=== PATIENT | male | born 1960 | race Caucasian/White ===

== ENCOUNTER → 2016-11-19 | Outpatient (CLI) | payer OTHER ==
[~2016-11-19] VITALS: Ht 185.4 cm; Wt 124.1 kg
[~2016-11-19] MED LIST: GLC/500 PO; NAPR220T40 PO; PSEU120T21 PO; VENL150C56 PO
[2016-11-19 15:45] VITALS: BP 116/73; PULSE 105; Ht 185.4 cm; Wt 124.1 kg
== END | disposition home or self-care (01) ==
LOC: C.NEUR 15:29
PROVIDERS: ATTEND Physician Assistant
DX: G47.30 Sleep apnea, unspecified (principal); E11.9 Type 2 diabetes mellitus without complications; F32.9 Major depressive disorder, single episode, unspecified; E78.5 Hyperlipidemia, unspecified; E66.9 Obesity, unspecified

== ENCOUNTER → 2017-10-17 | Outpatient (CLI) | payer OTHER ==
[~2017-10-17] VITALS: Ht 2.5 cm; Wt 121.4 kg
[2017-10-17 14:21] VITALS: BP 108/70; PULSE 114; Ht 2.5 cm; Wt 121.4 kg
== END | disposition home or self-care (01) ==
LOC: C.NEUR 13:40
PROVIDERS: ATTEND Physician Assistant
DX: G47.30 Sleep apnea, unspecified (principal); E66.9 Obesity, unspecified

== ENCOUNTER 2018-05-22 10:06 | Inpatient (IN) ==
[2018-05-22] MEDS ORDERED: SODIUM CHLORIDE 0.9% 1000ML 2,000 ML IV SCH (11:00)
[2018-05-22] MEDS ORDERED: PANTOprazole 40 MG in SYRINGE 0 ML IV ONE (11:02)
--- NOTE | 2018-05-22 11:29 | XRay Report ---
XR chest 1V portable CLINICAL HISTORY: Chest Pain COMPARISON STUDY: Chest radiograph May 17, 2018. PET/CT February 26, 2018. FINDINGS: A right internal jugular [id number]-[id number] is in place. There is no pneumothorax or pleural eff usion. There is no consolidation or evidence for pulmonary edema. Cardiomediastinal silhouette is nor mal. IMPRESSION: No acute cardiopulmonary findings. Electronically signed by: Robert Freeman M.D. 05/22/2018 11:27 AM
[2018-05-22 11:51] LABS: Hematocrit (blood only) 33.3 % (42-52); Hemoglobin 11.5 g/dL (14.0-18.0); Mean Corpuscular Hgb Conc 34.5 g/dL (32-36); Mean Corpuscular Volume 86.9 fL (80-100); RDW Coefficient of Variation 15.9 % (11.5-14.5); RDW Standard Deviation 50.1 fL (36.4-46.3); Red Blood Count 3.83 M/uL (4.7-6.1); White Blood Count 2.03 K/uL (4.8-10.8)
[2018-05-22 11:59] LABS: INR 1.1 (0.9-1.1); Prothrombin Time 11.4 Seconds (9.0-12.0)
[2018-05-22 12:09] LABS: Alanine Aminotransferase 21 U/L (12-78); Albumin Level 2.7 gm/dl (3.4-5.0); Aspartate Aminotransferase 17 U/L (15-37); BUN Creatinine Ratio 10.2 (10-20); Bilirubin Direct 0.1 mg/dl (0-0.2); Blood Urea Nitrogen 10 mg/dl (7-18); Calcium 8.2 mg/dl (8.5-10.1); Carbon Dioxide 24 mmol/L (21-32); Chloride 108 mmol/L (98-107); Creatinine Clr Calc Pharmacy 105.2 ml/min; Est GFR (African American) 98.1; Est GFR (Non-African American) 84.6; Glucose 145 mg/dl (70-99); Magnesium 1.9 mg/dl (1.8-2.4); Potassium 3.2 mmol/L (3.5-5.1); Sodium 138 mmol/L (136-145)
[2018-05-22 12:12] LABS: Albumin Globulin Ratio 0.8 (0.9-2); Alkaline Phosphatase 60 U/L (45-117); Bilirubin,Total 0.4 mg/dl (0.2-1); Globulin 3.6 gm/dl (2.5-4.0); Phosphorus 2.2 mg/dl (2.5-4.9); Total Protein 6.3 gm/dl (6.4-8.2); Troponin I < 0.015 ng/ml (0-0.045)
[2018-05-22 12:19] LABS: iSTAT Creatinine 0.8 mg/dl (0.6-1.3); iSTAT Hemoglobin 10.9 g/dl (14.0-18.0); iSTAT Ionized Calcium 1.12 mmol/l (1.12-1.32); iSTAT Potassium 3.1 mEq/L (3.3-5.0)
[2018-05-22 12:22] LABS: Mean Platelet Volume 10.4 fL (7.4-10.4); Platelet Count 79 K/uL (130-400)
[2018-05-22 12:24] LABS: Eosinophils # (auto) 0.01 K/uL (0-0.5); Eosinophils % (auto) 0.5 %; Immature Granulocytes # (auto) 0.01 K/uL (0.00-0.02); Immature Granulocytes % (auto) 0.5 %; Lymphocytes # (auto) 0.27 K/uL (1.2-3.4); Lymphocytes % (auto) 13.3 %; Monocytes # (auto) 0.29 K/uL (0.11-0.59); Monocytes % (auto) 14.3 %; Neutrophils # (auto) 1.45 K/uL (1.4-6.5); Neutrophils % (auto) 71.4 %
[2018-05-22] MEDS ORDERED: ONDANSETRON INJ 2 MG/ML 2 ML VIAL IV STA (12:45)
--- NOTE | 2018-05-22 13:34 | CT Scan Report ---
ADDENDUM Addendum: The paraesophageal mediastinal infiltration may be related to radiation change and reflect postradiation esophagitis. Mediastinitis cannot be excluded by imaging and clinical correlation is re commended. Electronically signed by: Robert Freeman M.D. 05/22/2018 1:[address] OF THE NECK WITHOUT CONTRAST CLINICAL HISTORY: esophogeal CA - hemoptysis/hematemesis COMPARISON STUDY: PET/CT February 26, 2018. TECHNIQUE: Axial images of the neck were obtained without IV contrast. Automated exposure control was utilized for the study. A dose lowering technique was utilized adhering to the principles of ALARA. FINDINGS: Please note that the chest CT will be reported separately. Postoperative findings within th e sinuses are noted. There is moderate mucosal thickening of the bilateral maxillary sinuses. There i s mild ethmoid sinus mucosal thickening. Visualized portions of the intracranial contents are unremar kable on this unenhanced exam. Evaluation of the neck is suboptimal on this unenhanced exam. The paro tid and submandibular glands are normal. Epiglottis is normal. There is no cervical lymphadenopathy. There is no fluid collection to suggest an abscess. A right internal jugular Mnxhnm-v-Gyuy is in plac e. A heavily calcified right lobe thyroid nodule is incidentally noted. Paraesophageal mediastinal in filtration and esophageal wall thickening is better depicted on the chest CT. There is no soft tissue gas within the neck. IMPRESSION: 1. No acute process within the neck on unenhanced exam. 2. No cervical lymphadenopathy. 3. Paraesophageal mediastinal infiltration and esophageal wall thickening, better depicted on the dilcia st CT. This is nonspecific but may reflect post radiation change/esophagitis. 4. Postoperative findings within the sinuses with moderate mucosal thickening of the bilateral maxill zackary sinuses. Electronically signed by: Robert Freeman M.D. 05/22/2018 1:33 PM
--- NOTE | 2018-05-22 13:42 | CT Scan Report ---
CT chest wo con CLINICAL HISTORY: esphogeal CA - hemoptysis/hematemesis COMPARISON STUDY: April 01, 2018 CT DOSE: TECHNIQUE: CT of the thorax was performed from the thoracic inlet to the lung bases. Images are revi ewed in the axial, sagittal, and coronal planes. IV contrast was not administered for this examinatio n. A dose lowering technique was utilized adhering to the principles of ALARA. FINDINGS: A right-sided A-Port catheter is visualized. Thyroid: There is a 1 cm rim calcified right lobe thyroid nodule. Thoracic aorta: The thoracic aorta is normal in course and caliber, noting standard 3 vessel arch marcos laxmi. Heart: The heart is normal in size. There is no significant pericardial effusion. There are coronary artery calcifications. Lungs and pleural spaces: There are no pleural effusions. There is no focal pulmonary consolidation. Mediastinum: There are paratracheal lymph nodes at the upper limits of normal in size. Roberta: There is no evidence of pathologic hilar adenopathy given the limitations of a noncontrast stud y Axilla: There is no evidence of pathologic axillary lymphadenopathy Upper abdomen: There is soft tissue thickening of the esophagus most pronounced at the level the eso phagogastric junction. There is however diffuse esophageal wall thickening involving the entire thora cic esophagus. There is mild infiltration of the periesophageal fat. Skeletal structures: There are no lytic or blastic osseous lesions. IMPRESSION: 1. No evidence of focal pulmonary consolidation. 2. No pleural effusions. No suspicious pulmonary masses. 3. Diffuse esophageal wall thickening with infiltration of the periesophageal fat. While likely relat ed to interval radiation therapy, a mediastinitis cannot be excluded. No pneumomediastinum is visuali zed. Electronically signed by: Donald Umanzor M.D. 05/22/2018 1:41 PM
--- NOTE | 2018-05-22 14:27 | History & Physical Report ---
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 Churchill -also have been on cycle 9 of 12 FOLFOX chemotherapy -history of -as per outpatient oncology notes patient was suppose due to complete radiation therapy on 05/22/18 but patient presents to hospital on 05/22/18 (had recent ER visit for nausea and vomiting) -patient reports vomiting a clot of of blood yesterday prior to this ED presentation and subsequent smaller episodes of vomiting with blood -CT in ED on 05/22/18 with "Diffuse esophageal wall thickening with infiltration of the periesophageal fat. While likely related to interval radiation therapy, a mediastinitis cannot be excluded" -likely the hematemesis is due to radiation esophagitis -review of outpatient notes that Hgb has been 12.9 in beginning to mid April with downtrending platelets and recent outpatient lab of Hgb 12 with platelets of 87 K. Admission labs of Hegb 11.5 to 10.9 and platelets of 79K -patient last taken the Lovenox on night of 05/22/18 -discussed benefits of risk of anticoagulation versus GI bleed, and plans to continue anticoagulation with IV heparin and trending the blood clots, give IV pantoprazole and IV fluids -will consult hematology/oncology on duration of bed bug exterminator duration and use of anticoagulation for the Cerebral venous sagittal sinus thrombosis -if patient has active bleeding still, and if Hgb or platelets drop signifi cantly then will stop IV heparin and consult gastroenterology -patient signed consent form for blood transfusion if needed and 2 units are to be ordered on hold -will keep NPO except meds and ice chips but generally will avoid oral medications at this time that are not essential until further stability of vomiting -IV antiemetics as need -hold blood pressure medication at this time Radiation induced esophagitis versus upper GI bleed -management as above Anemia and Thrombocytopenia -management as above 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 Holden has admitted the patient on 05/22/18 and patient will be followed by Dr. 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 Churchill; also have been on cycle 9 of 12 FOLFOX chemotherapy; history of as per outpatient oncology notes patient was suppose due to complete radiation therapy on 05/22/18 but patient presents to hospital on 05/22/18 (had recent ER visit for nausea and vomiting) who presents to the ED on 05/22/18 vomiting a clot of of blood yesterday prior to this ED presentation and subsequent smaller episodes of vomiting with blood Patient denies lightheadedness or shortness of breath. Reports only chest discomfort when vomiting. denies abdominal pain. When seen by hospitalist after ED provider completed CT neck and patient generally comfortable and asymptomatic. able to speak in full sentences while breathing on room air and answering questions appropriately. denies changes in urination or with bowel movements. Denies blood in urine of in stool Allergies Allergy/AdvReac Type Severity Reaction Status Date / Time Iodinated Contrast- Oral and AdvReac Sneezing, Verified 05/22/18 12:39 IV Dye watery eyes, and tight feeling throat Home Medications Home Medications Medication Instructions Recorded Confirmed Type fenofibrate nanocrystallized 145 145 mg PO QAM 12/24/17 05/22/18 History mg tablet metformin [Glucophage] 1,000 mg PO BID 01/19/18 05/22/18 History ondansetron HCl [Zofran] 8 mg PO Q8 PRN 01/19/18 05/22/18 History prochlorperazine maleate 10 mg PO Q6 PRN 01/19/18 05/22/18 History lisinopril 5 mg PO QAM 03/22/18 05/22/18 History sucralfate 100 mg/mL oral 10 ml PO QID #420 ml 05/06/18 05/22/18 Rx suspension omeprazole 20 mg PO DAILY PRN 05/17/18 05/22/18 History promethazine [Phenergan] 25 mg VT Q6H PRN #12 ea 05/17/18 05/22/18 Rx Magic Swizzle 10 ml PO UD 05/22/18 05/22/18 History cyanocobalamin (vitamin B-12) 5,000 mcg SUBLINGUAL DAILY 05/22/18 05/22/18 History enoxaparin 100 mg SUBCUT Q12 05/22/18 05/22/18 History venlafaxine 1.5 tabs PO DAILY 05/22/18 05/22/18 History Past Med/Surg History Medical History Cancer of lower third of esophagus (Acute) Dysphasia Status post upper GI endoscopy and biopsy November 26, 2017 Adenocarcinoma of the esophagus, poorly differentiated Status post upper EUS December 09, 2017 Lesion 10 cm Status post PET/CT December 05, 2017 Stage uT3 uN3 cM0 Diabetes (Chronic) Appendicitis with perforation (Acute 07/08/13) Perforated appendicitis (Acute 08/10/13) RLQ abdominal pain (Acute) Sleep apnea (Acute 08/10/13) Depression (Acute) Hyperlipidemia (Acute) Diabetes (Chronic) Esophageal cancer (Chronic) Hypertension (Chronic) Sleep apnea (Chronic) C. difficile colitis (Resolved) Surgical History History of appendectomy History of umbilical hernia repair (Resolved) History of colonoscopy (Resolved) H/O colonoscopy (Resolved) H/O sinus surgery (Resolved) H/O umbilical hernia repair (Resolved) History of appendectomy (Resolved) Family History Mother Cardiac disease Diabetes Father , 70yo;Cancerous brain tumor;bladder cancer; No problems noted. Brother No problems noted. Brother No problems noted. Social History Preferred Language: Serbian Beliefs That Will Affect Care: None marital status: Current Living Situation: Spouse current occupational status: employed current occupation: Works at [employer]; Feels Safe at Home: Yes Smoking Status: Former smoker Hx Alcohol Use: No Hx Substance Use: No during the past year weight has: remained stable Review of Systems All systems reviewed & are unremarkable except as noted in HPI & below Physical Exam Vital Signs (Past 24 Hours): Last Vital Signs Temp 37.0 C 05/22/18 10:23 Pulse 100 H 05/22/18 12:33 Resp 20 05/22/18 12:33 BP 119/70 05/22/18 12:33 Pulse Ox 99 05/22/18 12:33 Constitutional: WD/WN, vitals as above Eyes: PERRL, conjunctivae normal, anicteric sclerae EOM intact bilaterally ENMT: external ear and nose normal, oropharynx normal Neck: trachea midline, no thyromegaly normal visual inspection Respiratory: normal respiratory effort, lungs clear to auscultation Cardiovascular: RRR, no murmur, no edema Chest (Breasts): Chest: + vascular access device or port Gastrointestinal (Abdomen): normal bowel sounds, soft, nontender, no hepatosplenomegaly Musculoskeletal: no cyanosis or clubbing, extremities motor strength 5/5 Head/Neck/Chest: normocephalic and head atraumatic Neurologic: PERRL, EOMI, accommodation nl, no face palsy, no dysarthria CN's II-XI intact bilaterally Psychiatric: A+Ox3, euthymic affect (1) Hematemesis Nausea presence: with nausea Qualified Code(s): K92.0 - Hematemesis
[2018-05-22] MEDS ORDERED: HEPARIN SOD (PORCINE) 1000 UNIT/ML 10 ML VIAL ONE (14:52)
--- NOTE | 2018-05-22 15:02 | Emergency Department Note ---
Entered by Kim Bajwa acting as a scribe for Sea Fallon MD History of Present Illness General Chief complaint: Dehydration Stated complaint: DEHYDRATION,VOMITING BLOOD Time Seen by Provider: 05/22/18 10:53 Source: patient History of Present Illness Provider complaint: vomiting blood Onset (ago): day(s) (since last night) Location: abdomen Pain Consistency: + intermittent Quality: + other (vomiting blood) Associated symptoms: + chest pain and + nausea/vomiting (nausea); no shortness of breath The patient is a 58 year old male who presents to the Emergency Room with complaints of intermittently vomiting blood since last night. He reports that he also coughed up some blood. The patient states that he has a history of esophageal cancer. He states that he was supposed to go to radiology today for a radiation treatment but states that he was referred here. The patient states that he is also getting chemotherapy. He states that he has had blood come up before but states that it has never lasted this long. The patient states that he was told that this happens with treatment. He denies having blood transfusions lately. He reports having chest pain and nausea but denies having shortness of breath. The patient states that he is on Lovenox for a history of blood clots in his brain and states that he did not take it this morning. The patient reports a history of drinking and smoking a long time ago. Home Medications Home Medications Medication Instructions Recorded Confirmed Type fenofibrate nanocrystallized 145 145 mg PO QAM 12/24/17 05/22/18 History mg tablet metformin [Glucophage] 1,000 mg PO BID 01/19/18 05/22/18 History ondansetron HCl [Zofran] 8 mg PO Q8 PRN 01/19/18 05/22/18 History prochlorperazine maleate 10 mg PO Q6 PRN 01/19/18 05/22/18 History lisinopril 5 mg PO QAM 03/22/18 05/22/18 History sucralfate 100 mg/mL oral 10 ml PO QID #420 ml 05/06/18 05/22/18 Rx suspension omeprazole 20 mg PO DAILY PRN 05/17/18 05/22/18 History promethazine [Phenergan] 25 mg UT Q6H PRN #12 ea 05/17/18 05/22/18 Rx Magic Swizzle 10 ml PO UD 05/22/18 05/22/18 History cyanocobalamin (vitamin B-12) 5,000 mcg SUBLINGUAL DAILY 05/22/18 05/22/18 History enoxaparin 100 mg SUBCUT Q12 05/22/18 05/22/18 History venlafaxine 1.5 tabs PO DAILY 05/22/18 05/22/18 History Allergies Allergy/AdvReac Type Severity Reaction Status Date / Time Iodinated Contrast- Oral and AdvReac Sneezing, Verified 05/22/18 12:39 IV Dye watery eyes, and tight feeling throat Past Med/Surg History Medical History Cancer of lower third of esophagus (Acute) Dysphasia Status post upper GI endoscopy and biopsy November 26, 2017 Adenocarcinoma of the esophagus, poorly differentiated Status post upper EUS December 09, 2017 Lesion 10 cm Status post PET/CT December 05, 2017 Stage uT3 uN3 cM0 Diabetes (Chronic) Appendicitis with perforation (Acute 07/08/13) Perforated appendicitis (Acute 08/10/13) RLQ abdominal pain (Acute) Sleep apnea (Acute 08/10/13) Depression (Acute) Hyperlipidemia (Acute) Diabetes (Chronic) Esophageal cancer (Chronic) Hypertension (Chronic) Sleep apnea (Chronic) C. difficile colitis (Resolved) Surgical History History of appendectomy History of umbilical hernia repair (Resolved) History of colonoscopy (Resolved) H/O colonoscopy (Resolved) H/O sinus surgery (Resolved) H/O umbilical hernia repair (Resolved) History of appendectomy (Resolved) Family History Mother Cardiac disease Diabetes Father , 70yo;Cancerous brain tumor;bladder cancer; No problems noted. Brother No problems noted. Brother No problems noted. Social History Preferred Language: Pashto Communication Ability: Effective Sifter And Miller Required: No Beliefs That Will Affect Care: None marital status: Current Living Situation: Spouse current occupational status: employed current occupation: Works at [employer]; Other Information That Helps Us Care for You: No Feels Safe at Home: Yes Safety Concerns: Feels Safe At This Time Smoking Status: Former smoker Hx Alcohol Use: No Hx Substance Use: No during the past year weight has: remained stable Review of Systems See HPI for pertinent positives & negatives. and A total of 10 systems reviewed and were otherwise negative Physical Exam Vital Signs Vital Signs - 24 hr 05/22/18 10:23 05/22/18 10:53 05/22/18 11:54 Temperature 37.0 C Temperature Source Oral Sepsis Recent Fever Within 48 Hours No Sepsis New/Unexplained Change in Mental Status No Sepsis Action Taken by Nursing No Action Required Pulse Rate 121 H 107 H 98 H Pulse Rate [Left] Pulse Rate from SpO2 Sensor 106 H Pulse Rhythm Regular Pulse Strength Normal Respiratory Rate 18 19 18 Respiratory Effort / Characteristics Non-Labored Respiratory Depth Normal Respiratory Pattern Regular Blood Pressure 107/69 97/52 L Blood Pressure [Left Arm] Blood Pressure [Right Arm] Blood Pressure Mean 81 67 Blood Pressure Mean [Left Arm] Blood Pressure Mean [Right Arm] Blood Pressure Position Sitting Blood Pressure Position [Right Arm] Pulse Oximetry 99 97 98 Oxygen Delivery Method Room Air Nasal Cannula 05/22/18 12:19 05/22/18 12:33 05/22/18 12:35 Temperature Temperature Source Sepsis Recent Fever Within 48 Hours Sepsis New/Unexplained Change in Mental Status Sepsis Action Taken by Nursing Pulse Rate 93 H 99 H Pulse Rate [Left] 100 H Pulse Rate from SpO2 Sensor 93 H 100 H Pulse Rhythm Pulse Strength Respiratory Rate 19 20 19 Respiratory Effort / Characteristics Non-Labored Spontaneous Respiratory Depth Respiratory Pattern Blood Pressure 119/70 Blood Pressure [Left Arm] Blood Pressure [Right Arm] 119/70 Blood Pressure Mean 86 Blood Pressure Mean [Left Arm] Blood Pressure Mean [Right Arm] 86 Blood Pressure Position Blood Pressure Position [Right Arm] Lying Pulse Oximetry 98 99 99 Oxygen Delivery Method Room Air 05/22/18 14:09 05/22/18 14:10 05/22/18 14:11 Temperature Temperature Source Sepsis Recent Fever Within 48 Hours Sepsis New/Unexplained Change in Mental Status Sepsis Action Taken by Nursing Pulse Rate 100 H 92 H 92 H Pulse Rate [Left] Pulse Rate from SpO2 Sensor Pulse Rhythm Pulse Strength Respiratory Rate 15 26 H 21 Respiratory Effort / Characteristics Respiratory Depth Respiratory Pattern Blood Pressure 82/47 L Blood Pressure [Left Arm] Blood Pressure [Right Arm] Blood Pressure Mean 58 Blood Pressure Mean [Left Arm] Blood Pressure Mean [Right Arm] Blood Pressure Position Blood Pressure Position [Right Arm] Pulse Oximetry Oxygen Delivery Method 05/22/18 14:53 05/22/18 15:00 05/22/18 15:08 Temperature Temperature Source Sepsis Recent Fever Within 48 Hours Sepsis New/Unexplained Change in Mental Status Sepsis Action Taken by Nursing Pulse Rate 97 H Pulse Rate [Left] Pulse Rate from SpO2 Sensor Pulse Rhythm Pulse Strength Respiratory Rate 25 H Respiratory Effort / Characteristics Respiratory Depth Respiratory Pattern Blood Pressure 109/62 Blood Pressure [Left Arm] Blood Pressure [Right Arm] Blood Pressure Mean 77 Blood Pressure Mean [Left Arm] Blood Pressure Mean [Right Arm] Blood Pressure Position Blood Pressure Position [Right Arm] Pulse Oximetry Oxygen Delivery Method Room Air 05/22/18 15:56 05/22/18 19:00 Temperature 37.1 C 36.5 C Temperature Source Oral Oral Sepsis Recent Fever Within 48 Hours Sepsis New/Unexplained Change in Mental Status Sepsis Action Taken by Nursing Pulse Rate Pulse Rate [Left] 87 101 H Pulse Rate from SpO2 Sensor Pulse Rhythm Pulse Strength Respiratory Rate 21 22 Respiratory Effort / Characteristics Respiratory Depth Respiratory Pattern Blood Pressure Blood Pressure [Left Arm] 101/64 99/59 L Blood Pressure [Right Arm] 90/55 L Blood Pressure Mean Blood Pressure Mean [Left Arm] 76 72 Blood Pressure Mean [Right Arm] 66 Blood Pressure Position Blood Pressure Position [Right Arm] Pulse Oximetry 97 97 Oxygen Delivery Method GENERAL: Awake, alert, fatigued-appearing, in no distress HENT: Normocephalic, atraumatic. Oropharynx with dry mucous membranes. Blood- tinged sputum production. EYES: Normal conjunctiva. Sclera non-icteric. NECK: Supple. No nuchal rigidity. FROM. No JVD. RESPIRATORY: Clear to auscultation. CARDIAC: Tachycardic rate, normal rhythm. Extremities warm and well perfused. Pulses equal. ABDOMEN: Soft, non-distended. No tenderness to palpation. No rebound or guarding. No masses. RECTAL: Deferred. MUSCULOSKELETAL: Chest examination reveals no tenderness. The back is symmetrical on inspection without obvious abnormality. There is no CVA tenderness to palpation. No joint edema. LOWER EXTREMITIES: Calves are equal size bilaterally and non-tender. No edema. No discoloration. NEURO: Normal sensorium. No sensory or motor deficits noted. SKIN: No rash or jaundice noted. Course 1104: Past medical records reviewed. The patient was evaluated in room C7, and a complete history and physical examination were performed. 1121: I checked on the patient. 1246: I discussed the patient's case with Ashley Rocha who will evaluate the patient for further management. 1255: I updated the patient who verbalized agreement and understanding of the treatment plan. Consultations Consultation #1: Ashley Rocha Time: 12:46 Administered Medications Heparin Sodium/Dextrose (Heparin Sodium/Dextrose) 25,000 units in 500 mls @ 20 mls/hr IV .Q24H BARB; Protocol Stop: 06/21/18 15:44 Last Admin: 05/22/18 19:08 Dose: 1,000 units/hr, 20 mls/hr Documented by: [id number] Cosigned by: [id number] Admin: 05/22/18 18:04 Dose: Not Given Documented by: [id number] Pantoprazole Sodium 40 mg/ (Dextrose) 100 mls @ 20 mls/hr IV Q5H BARB Stop: 06/21/18 15:59 Last Admin: 05/22/18 20:44 Dose: 8 mg/hr, 20 mls/hr Documented by: [id number] Infusion: 05/22/18 20:44 Dose: 8 mg/hr, 20 mls/hr Documented by: [id number] Admin: 05/22/18 17:35 Dose: 8 mg/hr, 20 mls/hr Documented by: [id number] Dextrose/Sodium Chloride (D5w And 1/2nss) 1,000 mls @ 75 mls/hr IV .[id number] BARB Stop: 06/21/18 15:55 Last Admin: 05/22/18 17:36 Dose: 75 mls/hr Documented by: [id number] Sucralfate (Carafate) 1 gm PO QID BARB Stop: 06/21/18 16:59 Last Admin: 05/22/18 20:44 Dose: 1 gm Documented by: [id number] Admin: 05/22/18 17:43 Dose: 1 gm Documented by: [id number] Discontinued Medications Heparin Sodium (Porcine) (Heparin Iv Bolus) Confirm Administered Dose 10,000 units .ROUTE .STK-MED ONE Stop: 05/22/18 14:53 Last Admin: 05/22/18 15:04 Dose: 10,000 units Documented by: [id number] Cosigned by: [id number] Heparin Sodium/Dextrose () 1 ea IV NOW STA; Protocol Stop: 05/22/18 14:24 Last Admin: 05/22/18 15:09 Dose: Not Given Documented by: [id number] Heparin Sodium/Dextrose (Heparin Sodium/Dextrose) Confirm Administered Dose 25,000 units IV .STK-MED ONE Stop: 05/22/18 14:52 Last Admin: 05/22/18 15:06 Dose: 1,000 units Documented by: [id number] Cosigned by: [id number] Admin: 05/22/18 15:05 Dose: 4,000 units Documented by: [id number] Cosigned by: [id number] Heparin Sodium/Dextrose () 1 ea N/A NOW STA; Protocol Stop: 05/22/18 15:35 Last Admin: 05/22/18 15:39 Dose: Not Given Documented by: [id number] Pantoprazole Sodium 40 mg/ (Syringe) 10 mls @ 5 mls/min IV NOW ONE Stop: 05/22/18 11:03 Last Admin: 05/22/18 12:35 Dose: 5 mls/min Documented by: [id number] Sodium Chloride (Nss 1000ml) 2,000 mls @ 999 mls/hr IV .Q2H1M BARB Stop: 05/22/18 13:00 Last Infusion: 05/22/18 14:31 Dose: 0 mls/hr Documented by: [id number] Admin: 05/22/18 11:42 Dose: 999 mls/hr Documented by: [id number] Insulin Aspart (Novolog Flexpen) 0 units SC ACHS BARB Stop: 06/21/18 16:29 Last Admin: 05/22/18 18:03 Dose: Not Given Documented by: [id number] Cosigned by: [id number] Ondansetron HCl (Zofran) 4 mg IV NOW STA Stop: 05/22/18 12:46 Last Admin: 05/22/18 12:57 Dose: 4 mg Documented by: [id number] Medical Decision Making Differential Diagnosis Differential diagnosis: Etiologies such as esophagitis, variceal bleed, Boerhaave�s, [place]-Means tear, gastritis, peptic ulcer disease, AVM, inflammatory bowel disease, ischemia, diverticulosis, colitis, malignancy, coagulopathy, thrombocytopenia, fissure, hemorrhoid, epistaxis , as well as others were entertained. Medical Records Attestation: I reviewed the patient's medical records. Home Medications Current Medication List: was personally reviewed by me Laboratory Data Attestation: I reviewed the patient's lab results. Result diagrams: 05/22/18 20:34 05/22/18 11:29 Lab Results 05/22/18 05/22/18 05/22/18 Range/Units 11:29 11:29 11:29 WBC 2.03 L (4.8-10.8) K/uL RBC 3.83 L (4.7-6.1) M/uL Hgb 11.5 L (14.0-18.0) g/dL POC Hgb (14.0-18.0) g/dl Hct 33.3 L (42-52) % POC Hct (42-52) % MCV 86.9 (80-100) fL MCH 30.0 (25-34) pg MCHC 34.5 (32-36) g/dL RDW Std Deviation 50.1 H (36.4-46.3) fL RDW Coeff of Sarah 15.9 H (11.5-14.5) % Plt Count 79 L (130-400) K/uL MPV 10.4 (7.4-10.4) fL Immature Gran % (Auto) 0.5 % Neut % (Auto) 71.4 % Lymph % (Auto) 13.3 % Swain % (Auto) 14.3 % Eos % (Auto) 0.5 % Baso % (Auto) 0.0 % Immature Gran # (Auto) 0.01 (0.00-0.02) K/uL Neut # (Auto) 1.45 (1.4-6.5) K/uL Lymph # (Auto) 0.27 L (1.2-3.4) K/uL Swain # (Auto) 0.29 (0.11-0.59) K/uL Eos # (Auto) 0.01 (0-0.5) K/uL Baso # (Auto) 0.00 (0-0.2) K/uL PT (9.0-12.0) Seconds INR (0.9-1.1) POC Sodium (135-144) mEq/L Sodium 138 (136-145) mmol/L POC Potassium (3.3-5.0) mEq/L Potassium 3.2 L (3.5-5.1) mmol/L POC Chloride (101-112) mEq/L Chloride 108 H (98-107) mmol/L Carbon Dioxide 24 (21-32) mmol/L POC Total CO2 (24-31) mEq/l Anion Gap 6.0 (3-11) POC Anion Gap (16-25) mmol/L POC BUN (7-18) mg/dl BUN 10 (7-18) mg/dl Creatinine 0.98 (0.6-1.4) mg/dl POC Creatinine (0.6-1.3) mg/dl Est Cr Clr Drug Dosing 105.2 ml/min Est GFR ( Amer) 98.1 Est GFR (Non-Af Amer) 84.6 BUN/Creatinine Ratio 10.2 (10-20) Glucose 145 H (70-99) mg/dl POC Glucose (70-99) POC Glucose (other) (70-99) mg/dl Calcium 8.2 L (8.5-10.1) mg/dl POC Ioniz Calcium Teri (1.12-1.32) mmol/l Phosphorus 2.2 L (2.5-4.9) mg/dl Magnesium 1.9 (1.8-2.4) mg/dl Total Bilirubin 0.4 (0.2-1) mg/dl Direct Bilirubin 0.1 (0-0.2) mg/dl AST 17 (15-37) U/L ALT 21 (12-78) U/L Alkaline Phosphatase 60 (45-117) U/L Troponin I < 0.015 (0-0.045) ng/ml Total Protein 6.3 L (6.4-8.2) gm/dl Albumin 2.7 L (3.4-5.0) gm/dl Globulin 3.6 (2.5-4.0) gm/dl Albumin/Globulin Ratio 0.8 L (0.9-2) Lipase 73 (73-393) U/L Blood Type O Negative Antibody Screen NEGATIVE Crossmatch See Detail 05/22/18 05/22/18 05/22/18 Range/Units 11:29 12:07 16:24 WBC (4.8-10.8) K/uL RBC (4.7-6.1) M/uL Hgb (14.0-18.0) g/dL POC Hgb 10.9 L (14.0-18.0) g/dl Hct (42-52) % POC Hct 32 L (42-52) % MCV (80-100) fL MCH (25-34) pg MCHC (32-36) g/dL RDW Std Deviation (36.4-46.3) fL RDW Coeff of Sarah (11.5-14.5) % Plt Count (130-400) K/uL MPV (7.4-10.4) fL Immature Gran % (Auto) % Neut % (Auto) % Lymph % (Auto) % Swain % (Auto) % Eos % (Auto) % Baso % (Auto) % Immature Gran # (Auto) (0.00-0.02) K/uL Neut # (Auto) (1.4-6.5) K/uL Lymph # (Auto) (1.2-3.4) K/uL Swain # (Auto) (0.11-0.59) K/uL Eos # (Auto) (0-0.5) K/uL Baso # (Auto) (0-0.2) K/uL PT 11.4 (9.0-12.0) Seconds INR 1.1 (0.9-1.1) POC Sodium 140 (135-144) mEq/L Sodium (136-145) mmol/L POC Potassium 3.1 L (3.3-5.0) mEq/L Potassium (3.5-5.1) mmol/L POC Chloride 104 (101-112) mEq/L Chloride (98-107) mmol/L Carbon Dioxide (21-32) mmol/L POC Total CO2 21 L (24-31) mEq/l Anion Gap (3-11) POC Anion Gap 18.0 (16-25) mmol/L POC BUN 8 (7-18) mg/dl BUN (7-18) mg/dl Creatinine (0.6-1.4) mg/dl POC Creatinine 0.8 (0.6-1.3) mg/dl Est Cr Clr Drug Dosing ml/min Est GFR ( Amer) Est GFR (Non-Af Amer) BUN/Creatinine Ratio (10-20) Glucose (70-99) mg/dl POC Glucose 100 H (70-99) POC Glucose (other) 146 H (70-99) mg/dl Calcium (8.5-10.1) mg/dl POC Ioniz Calcium Teri 1.12 (1.12-1.32) mmol/l Phosphorus (2.5-4.9) mg/dl Magnesium (1.8-2.4) mg/dl Total Bilirubin (0.2-1) mg/dl Direct Bilirubin (0-0.2) mg/dl AST (15-37) U/L ALT (12-78) U/L Alkaline Phosphatase (45-117) U/L Troponin I (0-0.045) ng/ml Total Protein (6.4-8.2) gm/dl Albumin (3.4-5.0) gm/dl Globulin (2.5-4.0) gm/dl Albumin/Globulin Ratio (0.9-2) Lipase (73-393) U/L Blood Type Antibody Screen Crossmatch 05/22/18 Range/Units 20:34 WBC (4.8-10.8) K/uL RBC (4.7-6.1) M/uL Hgb 10.1 L (14.0-18.0) g/dL POC Hgb (14.0-18.0) g/dl Hct 29.7 L (42-52) % POC Hct (42-52) % MCV (80-100) fL MCH (25-34) pg MCHC (32-36) g/dL RDW Std Deviation (36.4-46.3) fL RDW Coeff of Sarah (11.5-14.5) % Plt Count (130-400) K/uL MPV (7.4-10.4) fL Immature Gran % (Auto) % Neut % (Auto) % Lymph % (Auto) % Swain % (Auto) % Eos % (Auto) % Baso % (Auto) % Immature Gran # (Auto) (0.00-0.02) K/uL Neut # (Auto) (1.4-6.5) K/uL Lymph # (Auto) (1.2-3.4) K/uL Swain # (Auto) (0.11-0.59) K/uL Eos # (Auto) (0-0.5) K/uL Baso # (Auto) (0-0.2) K/uL PT (9.0-12.0) Seconds INR (0.9-1.1) POC Sodium (135-144) mEq/L Sodium (136-145) mmol/L POC Potassium (3.3-5.0) mEq/L Potassium (3.5-5.1) mmol/L POC Chloride (101-112) mEq/L Chloride (98-107) mmol/L Carbon Dioxide (21-32) mmol/L POC Total CO2 (24-31) mEq/l Anion Gap (3-11) POC Anion Gap (16-25) mmol/L POC BUN (7-18) mg/dl BUN (7-18) mg/dl Creatinine (0.6-1.4) mg/dl POC Creatinine (0.6-1.3) mg/dl Est Cr Clr Drug Dosing ml/min Est GFR ( Amer) Est GFR (Non-Af Amer) BUN/Creatinine Ratio (10-20) Glucose (70-99) mg/dl POC Glucose (70-99) POC Glucose (other) (70-99) mg/dl Calcium (8.5-10.1) mg/dl POC Ioniz Calcium Teri (1.12-1.32) mmol/l Phosphorus (2.5-4.9) mg/dl Magnesium (1.8-2.4) mg/dl Total Bilirubin (0.2-1) mg/dl Direct Bilirubin (0-0.2) mg/dl AST (15-37) U/L ALT (12-78) U/L Alkaline Phosphatase (45-117) U/L Troponin I (0-0.045) ng/ml Total Protein (6.4-8.2) gm/dl Albumin (3.4-5.0) gm/dl Globulin (2.5-4.0) gm/dl Albumin/Globulin Ratio (0.9-2) Lipase (73-393) U/L Blood Type Antibody Screen Crossmatch Imaging Data Radiologist's Impression: Radiology results as stated below per my review and the radiologist's interpretation: XR chest 1V portable CLINICAL HISTORY: Chest Pain COMPARISON STUDY: Chest radiograph May 17, 2018. PET/CT February 26, 2018. FINDINGS: A right internal jugular [id number] is in place. There is no pneumothorax or pleural effusion. There is no consolidation or evidence for pulmonary edema. Cardiomediastinal silhouette is normal. IMPRESSION: No acute cardiopulmonary findings. Electronically signed by: Robert Freeman M.D. 05/22/2018 11:[address] chest wo con CLINICAL HISTORY: esphogeal CA - hemoptysis/hematemesis COMPARISON STUDY: April 01, 2018 CT DOSE: TECHNIQUE: CT of the thorax was performed from the thoracic inlet to the lung bases. Images are reviewed in the axial, sagittal, and coronal planes. IV contrast was not administered for this examination. A dose lowering technique was utilized adhering to the principles of ALARA. FINDINGS: A right-sided A-Port catheter is visualized. Thyroid: There is a 1 cm rim calcified right lobe thyroid nodule. Thoracic aorta: The thoracic aorta is normal in course and caliber, noting standard 3 vessel arch anatomy. Heart: The heart is normal in size. There is no significant pericardial effusion. There are coronary artery calcifications. Lungs and pleural spaces: There are no pleural effusions. There is no focal pulmonary consolidation. Mediastinum: There are paratracheal lymph nodes at the upper limits of normal in size. Roberta: There is no evidence of pathologic hilar adenopathy given the limitations of a noncontrast study Axilla: There is no evidence of pathologic axillary lymphadenopathy Upper abdomen: There is soft tissue thickening of the esophagus most pronounced at the level the esophagogastric junction. There is however diffuse esophageal wall thickening involving the entire thoracic esophagus. There is mild infiltration of the periesophageal fat. Skeletal structures: There are no lytic or blastic osseous lesions. IMPRESSION: 1. No evidence of focal pulmonary consolidation. 2. No pleural effusions. No suspicious pulmonary masses. 3. Diffuse esophageal wall thickening with infiltration of the periesophageal fat. While likely related to interval radiation therapy, a mediastinitis cannot be excluded. No pneumomediastinum is visualized. Electronically signed by: Donald Umanzor M.D. 05/22/2018 1:41 PM ADDENDUM Addendum: The paraesophageal mediastinal infiltration may be related to radiation change and reflect postradiation esophagitis. Mediastinitis cannot be excluded by imaging and clinical correlation is recommended. Electronically signed by: Robert Freeman M.D. 05/22/2018 1:[address] OF THE NECK WITHOUT CONTRAST CLINICAL HISTORY: esophogeal CA - hemoptysis/hematemesis COMPARISON STUDY: PET/CT February 26, 2018. TECHNIQUE: Axial images of the neck were obtained without IV contrast. Automated exposure control was utilized for the study. A dose lowering technique was utilized adhering to the principles of ALARA. FINDINGS: Please note that the chest CT will be reported separately. Postoperative findings within the sinuses are noted. There is moderate mucosal thickening of the bilateral maxillary sinuses. There is mild ethmoid sinus mucosal thickening. Visualized portions of the intracranial contents are unremarkable on this unenhanced exam. Evaluation of the neck is suboptimal on this unenhanced exam. The parotid and submandibular glands are normal. Epiglottis is normal. There is no cervical lymphadenopathy. There is no fluid collection to suggest an abscess. A right internal jugular [id number] is in place. A heavily calcified right lobe thyroid nodule is incidentally noted. Para esophageal mediastinal infiltration and esophageal wall thickening is better depicted on the chest CT. There is no soft tissue gas within the neck. IMPRESSION: 1. No acute process within the neck on unenhanced exam. 2. No cervical lymphadenopathy. 3. Paraesophageal mediastinal infiltration and esophageal wall thickening, better depicted on the chest CT. This is nonspecific but may reflect post radiation change/esophagitis. 4. Postoperative findings within the sinuses with moderate mucosal thickening of the bilateral maxillary sinuses. Electronically signed by: Robert Freeman M.D. 05/22/2018 1:33 PM ECG Data Attestation: I personally reviewed and interpreted this ECG as follows: Indication: vomiting Rate (beats per minute): 97 Rhythm: normal sinus Findings: + other (normal axis); no ST depression, no ST elevation and no acute ischemic change Blood Pressure Blood Pressure Findings: Normal blood pressure MDM Narrative The patient is a pleasant 58-year-old gentleman with a past medical history of esophageal cancer, stage IV, history of venous sinus thrombosis on Lovenox who presents emergency department with complaints of hemoptysis and hematemesis that began last night per hpi. Patient reports not taking his Lovenox today due to persistent blood-tinged sputum. On arrival patient is in no acute distress, afebrile stable vital signs. On exam the patient appears clinically dry with persistence of blood-tinged sputum production but without any massive hemoptysis or hematemesis. Abdomen is benign. No pain with tracheal manipulation. No crepitus on palpation of the neck or chest. EKG without acute ischemia. Chest x-ray unremarkable. CT of the neck and chest demonstrates esophageal mucosal thickening which is likely related to sequelae of radiation treatments. Question of mediastinitis is less likely given the patient is nontoxic- appearing. WBC 2, H/H 11.5/33.3, similar to recent values. Platelets 79 simil ar to yesterday however does appear to have down trended over the past several months. Chemistry without acidosis. BUN within normal limits. Phosphorus 2.2 with repletion ordered. LFTs unremarkable. Troponin negative. Patient was typed and screened in case of transfusion should patient's labs downtrend or symptoms worsen. Case was discussed with Aj Aguirre PA-C, and Dr[facility] Holden[facility], who will admit the patient. Admitting team to pursue specialty consultation if needed. Impression & Plan Hematemesis, Hemoptysis Discharge Plan Visit Data *Final* Discharge Date/Time: 05/22/18 15:10 Chief Complaint: Dehydration Stated Complaint: DEHYDRATION,VOMITING BLOOD ED Provider: Sea Fallon Discharge Problem: Hematemesis, Hemoptysis Patient Disposition: Admitted As Inpatient Discharge Instructions Interventions: ED Discharge Assessment Last Done: 05/22/18 15:10 Discharge Problem: Hematemesis Qualifiers: Nausea presence: with nausea Qualified Code(s): K92.0 - Hematemesis The scribe's documentation has been prepared under my direction and personally reviewed by me in its entirety. I confirm that the note above accurately reflects all work, treatment, procedures, and medical decision making performed by me.
[2018-05-22] MEDS: HEPARIN 25000 UNIT/500 ML D5W IV ONE ×2 (15:05→15:06)
[2018-05-22] MEDS ORDERED: Heparin IV Low Dose WITH Bolus STA (15:34)
[2018-05-22] MEDS ORDERED: GLUCOSE 40% GEL 15 GM TUBE PO PRN (15:56)
[2018-05-22] MEDS ORDERED: GLUCOSE 10 TABS/TUBE PO PRN (15:56)
[2018-05-22] MEDS ORDERED: SODIUM CHLORIDE 0.9% 250 ML IV PRN (15:56)
[2018-05-22] MEDS ORDERED: DEXTROSE 50% 50 ML SYRINGE IV PRN (15:56)
[2018-05-22] MEDS ORDERED: GLUCAGON FOR INJ 1 MG VIAL SQ PRN (15:56)
[2018-05-22] MEDS ORDERED: CARBOHYDRATES FOR HYPOGLYCEMIA PO PRN (15:56)
[2018-05-22] MEDS ORDERED: INSULIN ASPART 100 UNITS/ML 3 ML PEN SC SCH (16:30)
[2018-05-22] MEDS: PANTOprazole 40 MG in DEXTROSE 5% 100 ML IV SCH ×2 (17:35→20:44)
[2018-05-22] MEDS: D5W AND 1/2NSS 1,000 ML IV SCH (17:36)
[2018-05-22] MEDS: SUCRALFATE 1 GM/10 ML UDC PO SCH ×2 (17:43→20:44)
[2018-05-22] MEDS: HEPARIN LOW DOSE DEXTROSE 25,000 UNITS/500 ML IV SCH ×2 (18:04→19:08)
[2018-05-22 20:51] LABS: Hematocrit (blood only) 29.7 % (42-52); Hemoglobin 10.1 g/dL (14.0-18.0)
[2018-05-22 20:59] LABS: Partial Thromboplastin Ratio 1.4; Partial Thromboplastin Time 37.3 Seconds (21.0-31.0)
[2018-05-22] MEDS ORDERED: HEPARIN IV BOLUS 4,500 UNITS in SYRINGE 0 ML IV ONE (21:45)
[2018-05-23] MEDS: INSULIN ASPART 100 UNITS/ML 3 ML PEN SC SCH ×4 (00:41→17:07)
[2018-05-23] MEDS: PANTOprazole 40 MG in DEXTROSE 5% 100 ML IV SCH ×5 (01:51→22:28)
[2018-05-23 04:12] LABS: Hematocrit (blood only) 30.6 % (42-52); Hemoglobin 10.5 g/dL (14.0-18.0); Mean Corpuscular Hgb Conc 34.3 g/dL (32-36); Mean Corpuscular Volume 88.2 fL (80-100); RDW Coefficient of Variation 15.9 % (11.5-14.5); RDW Standard Deviation 50.8 fL (36.4-46.3); Red Blood Count 3.47 M/uL (4.7-6.1); White Blood Count 1.27 K/uL (4.8-10.8)
[2018-05-23 04:13] LABS: Platelet Count 55 K/uL (130-400)
[2018-05-23 04:30] LABS: BUN Creatinine Ratio 10.9 (10-20); Calcium 7.8 mg/dl (8.5-10.1); Creatinine Clr Calc Pharmacy 128.9 ml/min; Est GFR (African American) 114.1; Est GFR (Non-African American) 98.5; Potassium 2.9 mmol/L (3.5-5.1)
[2018-05-23 04:33] LABS: Partial Thromboplastin Ratio 3.4
[2018-05-23 04:42] LABS: Partial Thromboplastin Time 92.9 Seconds (21.0-31.0)
[2018-05-23] MEDS: D5W AND 1/2NSS 1,000 ML IV SCH ×2 (06:22→19:27)
[2018-05-23] MEDS: ONDANSETRON INJ 2 MG/ML 2 ML VIAL IV PRN ×2 (07:40→18:41)
[2018-05-23] MEDS: SUCRALFATE 1 GM/10 ML UDC PO SCH ×5 (07:51→21:31)
[2018-05-23] MEDS: POTASSIUM CHLORIDE / WTR 10 MEQ/100 ML PLCT IV SCH ×4 (09:52→13:21)
[2018-05-23 11:59] LABS: Partial Thromboplastin Ratio 1.4; Partial Thromboplastin Time 38.4 Seconds (21.0-31.0)
[2018-05-23] MEDS ORDERED: HEPARIN IV BOLUS 4,500 UNITS in SYRINGE 0 ML IV ONE (12:48)
[2018-05-23] MEDS: HEPARIN LOW DOSE DEXTROSE 25,000 UNITS/500 ML IV SCH (13:51)
--- NOTE | 2018-05-23 14:13 | Hospitalist Progress Note ---
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 Soft Tissue neck CT showed paraesophageal mediastinal infiltration may be related to radiation change and reflect postradiation esophagitis Hbg on admission 11.5, today 10.5 No further hematemesis episode today starting on clear liquid diet Will change PPI drip to IV BID Continue Sucralfate for now If hemoglobin drops significantly and symptoms reoccur, will consut GI Continue heparin drip for now Continue monitor hemoglobin Advanced adenocarcinoma of the gastroesophageal junction Case discussed with Radiation oncology today Dr. Cooper that will hold on radiation for today, plan to resume on Saturday Follows with [facility] oncology clinic with Dr. 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 at home Hold home dose metformin Place on sliding scale insulin Monitor BS DVT ppx: heparin IV while inpatient for now Full Code Disposition Continue monitor CBC Possible discharge tomorrow Subjective Pt was seen and examined Lying in bed with no distress Pt said that he stopped vomiting He said that now he spitting a lot that is usually since starting chemo and radiation He agreed to start on clear liquid diet Denies any chest pain, palpitation and SOB Physical Exam Vital Signs (Past 24 Hours): Last Vital Signs Temp 36.8 C 05/23/18 11:45 Pulse 80 05/23/18 11:45 Resp 20 05/23/18 11:45 BP 108/71 05/23/18 11:45 Pulse Ox 97 05/23/18 11:45 Physical Exam: General- No acute distress Head- atraumatic Eyes- PERRL, EOMI, ENT- oropharynx clear Neck- supple, no JVD Lungs- clear to auscultation Heart- regular rhythm; no murmur Abdomen- normal bowel sounds, soft, nontender Extremities- no calf tenderness Neuro- alert, oriented x 3; PERRL, EOMI; no facial palsy; no dysarthria Skin- warm & dry (1) Hematemesis Nausea presence: with nausea Qualified Code(s): K92.0 - Hematemesis
[2018-05-23 20:34] LABS: Hematocrit (blood only) 29.2 % (42-52); Hemoglobin 10.1 g/dL (14.0-18.0)
[2018-05-23 20:59] LABS: Partial Thromboplastin Ratio 2.1
[2018-05-23 21:19] LABS: Partial Thromboplastin Time 56.4 Seconds (21.0-31.0)
--- NOTE | 2018-05-23 21:41 | Hospitalist Progress Note ---
Date of Service May 23, 2018 Subjective Made aware by RN of hematemesis episode around 9:30 PM. Bright red to dark brown/black as per RN. No unusual abdominal pain. Patient later noted to to be febrile. Some cough symptoms noted as per RN. Chest x-ray as per my interpretation atelectasis, no obvious infiltrate AP UGIB Sepsis, immunocompromised patient, possible aspiration pneumonitis Continue PPI drip Hold IV heparin Trend H&H GI consult if with progression of symptoms/hemoglobin drop Cultures, check lactic acid IV Zosyn for now for HACP/possible aspiration pneumonitis. Will relay to AM provider. Physical Exam Vital Signs (Past 24 Hours): Last Vital Signs Temp 36.9 C 05/23/18 18:43 Pulse 87 05/23/18 18:43 Resp 18 05/23/18 18:43 BP 138/88 05/23/18 18:43 Pulse Ox 100 05/23/18 18:43
[2018-05-23 22:40] LABS: Hematocrit (blood only) 31.1 % (42-52); Hemoglobin 10.8 g/dL (14.0-18.0); Mean Corpuscular Hgb Conc 34.7 g/dL (32-36); Mean Corpuscular Volume 87.6 fL (80-100); Mean Platelet Volume 10.6 fL (7.4-10.4); Platelet Count 71 K/uL (130-400); RDW Coefficient of Variation 15.9 % (11.5-14.5); RDW Standard Deviation 50.2 fL (36.4-46.3); Red Blood Count 3.55 M/uL (4.7-6.1); White Blood Count 1.17 K/uL (4.8-10.8)
[2018-05-23 22:41] LABS: Basophils # (auto) 0.01 K/uL (0-0.2); Basophils % (auto) 0.9 %; Eosinophils # (auto) 0.04 K/uL (0-0.5); Eosinophils % (auto) 3.4 %; Lymphocytes # (auto) 0.12 K/uL (1.2-3.4); Lymphocytes % (auto) 10.3 %; Monocytes % (auto) 42.7 %; Neutrophils % (auto) 42.7 %
[2018-05-23] MEDS: PROMETHAZINE HCL 25 MG in SODIUM CHLORIDE 0.9% 50 ML IV PRN (23:04)
[2018-05-24] MEDS ORDERED: ACETAMINOPHEN 65 ML IV ONE (00:21)
[2018-05-24] MEDS ORDERED: HEPARIN 100 UNIT/ML 5ML FLUSH FLUSH PRN (00:42)
[2018-05-24] MEDS ORDERED: PIPERACILL/TAZOBAC CONSULT ACTIVE PRN (01:07)
[2018-05-24 01:32] LABS: Albumin Level 2.4 gm/dl (3.4-5.0); BUN Creatinine Ratio 7.2 (10-20); Calcium 7.8 mg/dl (8.5-10.1); Creatinine Clr Calc Pharmacy 132.4 ml/min; Est GFR (African American) 115.3; Est GFR (Non-African American) 99.5; Magnesium 1.8 mg/dl (1.8-2.4); Potassium 3.2 mmol/L (3.5-5.1)
[2018-05-24 01:35] LABS: Albumin Globulin Ratio 0.8 (0.9-2); Bilirubin,Total 0.3 mg/dl (0.2-1); Globulin 3.2 gm/dl (2.5-4.0); Total Protein 5.6 gm/dl (6.4-8.2)
[2018-05-24] MEDS: INSULIN ASPART 100 UNITS/ML 3 ML PEN SC SCH ×5 (01:35→21:24)
[2018-05-24] MEDS ORDERED: PIPERACILLIN/TAZOBACTAM 4.5 GM in DEXTROSE 5% 100 ML IV STA (01:45)
[2018-05-24 01:49] LABS: Eosinophils # (auto) 0.02 K/uL (0-0.5); Hematocrit (blood only) 28.9 % (42-52); Hemoglobin 10.1 g/dL (14.0-18.0); Lymphocytes # (auto) 0.17 K/uL (1.2-3.4); Lymphocytes % (auto) 17.3 %; Mean Corpuscular Hgb Conc 34.9 g/dL (32-36); Mean Corpuscular Volume 86.5 fL (80-100); Mean Platelet Volume 10.4 fL (7.4-10.4); Monocytes # (auto) 0.32 K/uL (0.11-0.59); Monocytes % (auto) 32.7 %; Neutrophils # (auto) 0.47 K/uL (1.4-6.5); Platelet Count 62 K/uL (130-400); RDW Coefficient of Variation 15.9 % (11.5-14.5); RDW Standard Deviation 49.2 fL (36.4-46.3); Red Blood Count 3.34 M/uL (4.7-6.1); White Blood Count 0.98 K/uL (4.8-10.8)
[2018-05-24 01:53] LABS: Giant Platelets 2+
[2018-05-24] MEDS: PANTOprazole 40 MG in DEXTROSE 5% 100 ML IV SCH ×5 (03:22→22:15)
[2018-05-24] MEDS: POTASSIUM CHLORIDE / WTR 10 MEQ/100 ML PLCT IV SCH ×4 (03:24→08:24)
[2018-05-24 06:16] LABS: Hemoglobin 9.6 g/dL (14.0-18.0)
--- NOTE | 2018-05-24 06:26 | XRay Report ---
XR chest 1V portable CLINICAL HISTORY: fever dyspnea COMPARISON STUDY: 05/22/2018 FINDINGS: Poor inspiratory volumes. Lungs are considered clear. Central catheters. Vena cava. IMPRESSION: No acute process. The above report was generated using voice recognition software. It may contain grammatical, syntax or spelling errors. Electronically signed by: Derek Keenan M.D. 05/24/2018 6:25 AM
[2018-05-24 07:13] LABS: Partial Thromboplastin Ratio 0.9; Partial Thromboplastin Time 25.1 Seconds (21.0-31.0)
[2018-05-24 07:30] LABS: Toxic Vacuolation 1+
[2018-05-24] MEDS: D5W AND 1/2NSS 1,000 ML IV SCH ×2 (08:27→21:24)
[2018-05-24] MEDS: SUCRALFATE 1 GM/10 ML UDC PO SCH ×4 (08:34→20:00)
[2018-05-24] MEDS: PROMETHAZINE HCL 25 MG in SODIUM CHLORIDE 0.9% 50 ML IV PRN ×2 (09:45→19:47)
[2018-05-24] MEDS: PIPERACILLIN/TAZOBACTAM 4.5 GM in DEXTROSE 5% 100 ML IV SCH ×3 (10:20→23:55)
[2018-05-24 12:56] LABS: Appearance Urine Clear (Clear); Bilirubin Urine Negative (Negative); Blood Urine Negative (Negative); Color Urine Yellow; Glucose Urine UA Negative (Negative); Ketones Urine Negative (Negative); Leukocyte Esterase Urine Negative (Negative); Nitrite Urine Negative (Negative); Protein Urine Negative (Negative); Specific Gravity Urine 1.012 (1.000-1.030); Urobilinogen Urine Negative (Negative); pH Urine 6.5 (4.5-7.5)
--- NOTE | 2018-05-24 13:17 | Oncology Consultation ---
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 - PET-CT scan done earlier in in February 2018 showed very good response. - Started on radiation treatment to the lower esophageal mass lesion which he is about to complete next week (3 sessions left). - Now admitted for upper GI bleed, suspected to have esophagitis related radiation treatment. I reviewed his blood workup, he has low ANC and thrombocytopenia which is related to the recent chemotherapy treatment. He had fever earlier today, blood culture drawn, started her on broad-spectrum antibiotic with Zosyn. Regarding duration of the anticoagulant treatment, with the cancer diagnosis, recommendation will be long-term anticoagulant treatment but sometimes we may have to hold anticoagulant treatment based on clinical conditions especially bleeding complications. I agree about holding IV heparin at this time but once he is not have any upper GI bleed, I would recommend restarting Lovenox. He is due for next cycle of chemotherapy next week but most likely will delay the treatment because of recent fever, low blood count and the upper GI bleed. I would not recommend Neupogen at this time. I also discussed his case with the hospitalist. He will continue to have follow Dr. Orantes as an outpatient. Thanks for the consultation. 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 Follow-up PET-CT scan done on 02/26/2018 showed interval decrease in the size and metal activity of the lower esophageal mass, interval result of previously noted left supraclavicular and gastrohepatic ligament lymph nodes. Decreased in the size and activity of the right paratracheal and posterior mediastinal lymphadenopathy. He follows with Dr. Orantes in the office. In February 2019 he also had cerebral sinus thrombosis, treated with Lovenox and presently before this hospitalization, he was on Lovenox. He had upper extremity weakness which has improved to great extent, in fact he is back to work. As she had a very good response, he was started on radiation treatment to the lower esophageal mass lesion, he was about to complete the radiation treatment next week (3 sessions left). Now admitted in hospital for upper GI bleed which is most likely radiation induced esophagitis. Because of upper GI bleed, he was started on IV heparin. Hematology consulted regarding duration of the anticoagulant treatment. I saw him at bedside today, his friend was also at bedside, last night he had fever, blood culture drawn, started him on broad-spectrum antibiotic with Zocin, also had another episode of upper GI bleed, now IV heparin is on hold as of nurse transplant. He denies any new bleeding from any sites, no bowel movement for the last few days, denies any abdominal discomfort, hemodynamically stable, no fever when I saw him at bedside today, no leg edema, before this hospitalization, he was ambulating well by himself, Allergies Allergy/AdvReac Type Severity Reaction Status Date / Time Iodinated Contrast- Oral and AdvReac Sneezing, Verified 05/22/18 12:39 IV Dye watery eyes, and tight feeling throat Home Medications Home Medications Medication Instructions Recorded Confirmed Type fenofibrate nanocrystallized 145 145 mg PO QAM 12/24/17 05/22/18 History mg tablet metformin [Glucophage] 1,000 mg PO BID 01/19/18 05/22/18 History ondansetron HCl [Zofran] 8 mg PO Q8 PRN 01/19/18 05/22/18 History prochlorperazine maleate 10 mg PO Q6 PRN 01/19/18 05/22/18 History lisinopril 5 mg PO QAM 03/22/18 05/22/18 History sucralfate 100 mg/mL oral 10 ml PO QID #420 ml 05/06/18 05/22/18 Rx suspension omeprazole 20 mg PO DAILY PRN 05/17/18 05/22/18 History promethazine [Phenergan] 25 mg MT Q6H PRN #12 ea 05/17/18 05/22/18 Rx Magic Swizzle 10 ml PO UD 05/22/18 05/22/18 History cyanocobalamin (vitamin B-12) 5,000 mcg SUBLINGUAL DAILY 05/22/18 05/22/18 History enoxaparin 100 mg SUBCUT Q12 05/22/18 05/22/18 History venlafaxine 1.5 tabs PO DAILY 05/22/18 05/22/18 History Patient History Medical History Cancer of lower third of esophagus (Acute) Dysphasia Status post upper GI endoscopy and biopsy November 26, 2017 Adenocarcinoma of the esophagus, poorly differentiated Status post upper EUS December 09, 2017 Lesion 10 cm Status post PET/CT December 05, 2017 Stage uT3 uN3 cM0 Diabetes (Chronic) Appendicitis with perforation (Acute 07/08/13) Perforated appendicitis (Acute 08/10/13) RLQ abdominal pain (Acute) Sleep apnea (Acute 08/10/13) Depression (Acute) Hyperlipidemia (Acute) Diabetes (Chronic) Esophageal cancer (Chronic) Hypertension (Chronic) Sleep apnea (Chronic) C. difficile colitis (Resolved) Surgical History History of appendectomy History of umbilical hernia repair (Resolved) History of colonoscopy (Resolved) H/O colonoscopy (Resolved) H/O sinus surgery (Resolved) H/O umbilical hernia repair (Resolved) History of appendectomy (Resolved) Family History Mother Cardiac disease Diabetes Father , 70yo;Cancerous brain tumor;bladder cancer; No problems noted. Brother No problems noted. Brother No problems noted. Social History Communication Ability: Effective Beliefs That Will Affect Care: None marital status: Current Living Situation: Spouse current occupational status: employed current occupation: Works at [employer]; Feels Safe at Home: Yes Smoking Status: Former smoker Hx Alcohol Use: No Hx Substance Use: No during the past year weight has: remained stable Review of Systems REVIEW OF SYSTEMS: GENERAL: some weight loss noted, feeling slightly weak and tired, had fever earlier today, now has much less fever. No chills. SKIN: No skin rash, no bruising. HEAD: No new/increasing headache, no dizziness. EYES: No recent change in the vision, no diplopia, EARS: No earache ,no tinnitus, NOSE: No epistaxis, No nasal discharge or stuffiness, MOUTH: No sores, no dysphagia, no hoarseness of voice, NECK: No lumps, No swelling in thyroid area. No stiffness. PULMONARY: No cough, No shortness of breath, no hemoptysis, no chest pain, No wheezing. CARDIOVASCULAR: No anginal chest pain, no PND, no orthopnea. No palpitation, no leg edema. No syncope. GASTRIINTESTINAL: No abdominal pain, nausea and vomiting present. No diarrhea, constipation present. No blood in stool or black tarry stools. No abdominal distention. UROLOGIC: No burning urination. No hematuria. MUSCULOSKELETAL: No joint pain, No joint swelling, no muscle weakness. HEMATOLOGIC: No anemia, no bleeding disorder, No bruising. NEUROLOGIC: No seizures, no focal weakness, no speech difficulty, No memory disturbances. No tingling or numbness of the extremities. PSYCHRIATRIC: No depression. No anxiety. No psychosis. Physical Exam Vital Signs (Past 24 Hours): Last Vital Signs Temp 37.4 C 05/24/18 11:19 Pulse 80 05/24/18 11:19 Resp 18 05/24/18 11:19 BP 123/75 05/24/18 11:19 Pulse Ox 100 05/24/18 11:19 On exam: - Alert and oriented x3, well built man, not in any distress. - HEENT: no icterus, no pallor, Throat: Normal. - Neck: No palpable cervical lymphadenopathy. - Chest: clear to auscultation. - Abdomen: soft, nontender, no hepatomegaly, no splenomegaly. - No focal neuro deficit. - Extremities: no finger clubbing, no leg edema. Results & Data Laboratory Results - WBC 0.9, H&H of 10.1/28.9, MCV 86, Platelet count of 62,000. (05/24/2018).- BUN/creatinine: 6/0.7, normal liver function test. Diagnostic Findings CT scan of the chest (05/22/2018) - No evidence of pulmonary consultation - No pleural effusion. - Diffuse thickening of the esophageal wall with infiltration of the perioesophageal fat. CT scan of the neck (05/22/2018) no acute process identified - No cervical lymphadenopathy. - Paraesophageal mediastinal infiltration and thickening of the esophageal wall noted. Blood culture (05/24/2018) �> Pending.
[2018-05-24] MEDS: ACETAMINOPHEN 65 ML IV PRN ×2 (15:26→23:33)
--- NOTE | 2018-05-24 15:57 | Hospitalist Progress Note ---
Date of Service May 24, 2018 Assessment & Plan (1) Hematemesis: Possible related to radiation esophagitis CT chest showed diffuse esophageal wall thickening with infiltration of the periesophageal fat. Soft Tissue neck CT showed paraesophageal mediastinal infiltration may be related to radiation change and reflect postradiation esophagitis Hbg on admission 11.5, today 9.6 Had more hematemesis episode last night On clear liquid diet Will change PPI drip to IV BID Continue Sucralfate for now GI was consulted Heparin drip on hold for now Continue monitor hemoglobin Neutropenic fever WBC 0.9 Starting on Zosyn IV Blood cx pending Will add vanco for for at least for 48hr until blood cx result Continue monitor closely Advanced adenocarcinoma of the gastroesophageal junction Case discussed with Radiation oncology today Dr. Cooper that will hold on radiation for today, plan to resume on Saturday Follows with [facility] oncology clinic with Dr. 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 Hold home dose metformin Place on sliding scale insulin Monitor BS Hypokalemia K 3.2 K replaced Monitor BMP DVT ppx: Heparin drip on hold due to hematemesis Will place on SCD Full Code Disposition Continue monitor CBC Possible discharge tomorrow Subjective Pt was seen and examined Lying in bed with no distress Pt had episodes of hematemesis last night He developed a fever last night He said that the antiemetic med helps Denies any chest pain, palpitation, dizziness and SOB Physical Exam Vital Signs (Past 24 Hours): Last Vital Signs Temp 38.0 C H 05/24/18 15:01 Pulse 96 H 05/24/18 15:01 Resp 18 05/24/18 15:01 BP 124/76 05/24/18 15:01 Pulse Ox 95 05/24/18 15:01 Physical Exam: General- No acute distress Head- atraumatic Eyes- PERRL, EOMI, ENT- oropharynx clear Neck- supple, no JVD Lungs- clear to auscultation Heart- regular rhythm; no murmur Abdomen- normal bowel sounds, soft, nontender Extremities- no calf tenderness Neuro- alert, oriented x 3; PERRL, EOMI; no facial palsy; no dysarthria Skin- warm & dry (1) Hematemesis Nausea presence: with nausea Qualified Code(s): K92.0 - Hematemesis
[2018-05-24] MEDS ORDERED: VANCOMYCIN CONSULT ACTIVE PRN (16:05)
[2018-05-24] MEDS ORDERED: VANCOMYCIN HCL 1,000 MG in SODIUM CHLORIDE 0.9% 250 ML IV SCH (16:15)
[2018-05-24] MEDS ORDERED: VANCOMYCIN HCL 2,500 MG in SODIUM CHLORIDE 0.9% 500 ML IV ONE (16:30)
[2018-05-24] MEDS: VANCOMYCIN HCL 1,500 MG in SODIUM CHLORIDE 0.9% 500 ML IV SCH (23:55)
[2018-05-25] MEDS: PANTOprazole 40 MG in DEXTROSE 5% 100 ML IV SCH ×5 (04:08→22:16)
[2018-05-25 06:41] LABS: Hematocrit (blood only) 28.2 % (42-52); Hemoglobin 9.9 g/dL (14.0-18.0); Mean Corpuscular Hgb Conc 35.1 g/dL (32-36); Mean Corpuscular Volume 88.1 fL (80-100); Mean Platelet Volume 10.8 fL (7.4-10.4); Platelet Count 69 K/uL (130-400); RDW Coefficient of Variation 16.4 % (11.5-14.5); RDW Standard Deviation 51.6 fL (36.4-46.3); White Blood Count 0.72 K/uL (4.8-10.8)
[2018-05-25 06:48] LABS: Basophils # (auto) 0.01 K/uL (0-0.2); Basophils % (auto) 1.4 %; Dohle Bodies 3+; Eosinophils # (auto) 0.02 K/uL (0-0.5); Eosinophils % (auto) 2.8 %; Giant Platelets 3+; Lymphocytes % (auto) 27.8 %; Monocytes # (auto) 0.39 K/uL (0.11-0.59); Monocytes % (auto) 54.2 %; Neutrophils % (auto) 13.8 %; Toxic Granulation 1+
[2018-05-25 07:01] LABS: BUN Creatinine Ratio 6.1 (10-20); Creatinine Clr Calc Pharmacy 133.7 ml/min; Est GFR (African American) 115.3; Est GFR (Non-African American) 99.5; Potassium 2.9 mmol/L (3.5-5.1)
[2018-05-25] MEDS: VANCOMYCIN HCL 1,500 MG in SODIUM CHLORIDE 0.9% 500 ML IV SCH ×3 (08:45→23:55)
[2018-05-25] MEDS: PIPERACILLIN/TAZOBACTAM 4.5 GM in DEXTROSE 5% 100 ML IV SCH ×3 (08:50→23:56)
[2018-05-25] MEDS: SUCRALFATE 1 GM/10 ML UDC PO SCH ×4 (08:53→21:24)
--- NOTE | 2018-05-25 10:10 | Gastroenterology Progress Note ---
Date of Service May 25, 2018 Assessment & Plan (1) Esophageal cancer: (2) Hematemesis: (3) Cancer of lower third of esophagus: 1) NPO after midnight 2) Proceed with EGD in the AM, however, if he remains neutropenic, or has further fevers, will delay EGD until a later date 3) Continue PPI and Carafate therapy now 4) Continue supportive care Once again, thank you for allowing me to participate in the care of Mr. Skinner, if you have any further questions, please do not hesitate to contact me. Subjective Mr. Skinenr is feeling a little better this AM. He does report 1 dark stool early this AM, but no further hemoptysis or hematemesis. He has tolerated some clear liquids this AM. He denies any abdominal pain, fevers, chills, nausea or vomiting. He has no further complaints. Review of Systems All systems reviewed & are unremarkable except as noted in HPI & below Physical Exam Vital Signs (Past 24 Hours): Last Vital Signs Temp 36.5 C 05/25/18 07:13 Pulse 92 H 05/25/18 07:13 Resp 18 05/25/18 07:13 BP 109/69 05/25/18 07:13 Pulse Ox 96 05/25/18 07:13 Constitutional: + ill appearing (Chronic); no acute distress Respiratory: normal respiratory effort Gastrointestinal (Abdomen): normal bowel sounds, soft, nontender, no hepatosplenomegaly (1) Esophageal cancer Malignant neoplasm of esophagus location: unspecified location Qualified Code(s): C15.9 - Malignant neoplasm of esophagus, unspecified (2) Hematemesis Nausea presence: with nausea Qualified Code(s): K92.0 - Hematemesis
[2018-05-25] MEDS: D5W AND 1/2NSS 1,000 ML IV SCH ×2 (11:33→23:56)
[2018-05-25] MEDS: POTASSIUM CHLORIDE / WTR 10 MEQ/100 ML PLCT IV SCH ×4 (11:34→14:21)
[2018-05-25] MEDS: PROMETHAZINE HCL 25 MG in SODIUM CHLORIDE 0.9% 50 ML IV PRN ×2 (13:38→20:13)
[2018-05-25] MEDS: ACETAMINOPHEN 65 ML IV PRN (14:21)
[2018-05-25] MEDS: INSULIN ASPART 100 UNITS/ML 3 ML PEN SC SCH ×4 (15:17→20:18)
--- NOTE | 2018-05-25 15:43 | Hospitalist Progress Note ---
Date of Service May 25, 2018 Assessment & Plan (1) Hematemesis: Possible related to radiation esophagitis CT chest showed diffuse esophageal wall thickening with infiltration of the periesophageal fat. Soft Tissue neck CT showed paraesophageal mediastinal infiltration may be related to radiation change and reflect postradiation esophagitis Hbg on admission 11.5, today 9.9 Had more hematemesis episode last night On clear liquid diet Will change PPI drip to IV BID Continue Sucralfate for now GI was consulted Continue holding Heparin drip Continue monitor hemoglobin NPO after midnight for EGD Neutropenic fever WBC 0.9 Continue IV Zosyn and Vanco Blood cx no growth Continue monitor closely Advanced adenocarcinoma of the gastroesophageal junction Case discussed with Radiation oncology today Dr. Cooper that will hold on radiation for today, plan to resume on Saturday Follows with [facility] oncology clinic with Dr. 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 Lovenox on hold for now due to hematemesis Was on IV heparin drip that placed on hold last night due to hematemesis episode Hemoglobin 9.6 today Continue monitor closely Pancytopenia Platelet dropped to 69 today Hemoglobin 9.9 today Hematology/oncology on board No platelet transfusion for now as per oncology Monitor CBC Type 2 diabetes mellitus not on correction use of insulin at home Hold home dose metformin Place on sliding scale insulin Monitor BS Hypokalemia K 2.9 K replaced Monitor BMP DVT ppx: Heparin drip on hold due to hematemesis On SCD Full Code Disposition Continue monitor CBC Plan for EGD in AM Subjective Pt was seen and examined Lying in bed with no distress Pt said that he had an episode of hematemesis last night He said that he had a dark BM today He said that the nausea med helps Denies any chest pain, palpitation, dizziness and SOB Physical Exam Vital Signs (Past 24 Hours): Last Vital Signs Temp 37.3 C 05/25/18 14:59 Pulse 85 05/25/18 14:59 Resp 18 05/25/18 14:59 BP 87/53 L 05/25/18 14:59 Pulse Ox 96 05/25/18 14:59 Physical Exam: General- No acute distress Head- atraumatic Eyes- PERRL, EOMI, ENT- oropharynx clear Neck- supple, no JVD Lungs- clear to auscultation Heart- regular rhythm; no murmur Abdomen- normal bowel sounds, soft, nontender Extremities- no calf tenderness Neuro- alert, oriented x 3; PERRL, EOMI; no facial palsy; no dysarthria Skin- warm & dry (1) Hematemesis Nausea presence: with nausea Qualified Code(s): K92.0 - Hematemesis
--- NOTE | 2018-05-25 16:41 | Pharmacy Report ---
Pharmacy Abx Initial Consult - Date of Service May 25, 2018 - Pharmacy Dosing Scope Date of Consult: 05/24/18 Consultation requested by: Dr. Kinsey Pharmacy is consulted to initiate Zosyn and Vancomycin IV dosing therapy, order appropriate labs and adjust drug dose/frequency. - Subjective The patient is a 58 year old M admitted on 05/22/18 14:16. - Objective Height: 6 ft 1 in Weight: 109.1 kg Vital Signs (Past 12hrs): Vital Signs Temp Pulse Resp BP Pulse Ox 05/25/18 14:59 37.3 C 85 18 87/53 L 96 05/25/18 13:59 37.8 C H 05/25/18 12:00 37.5 C 87 18 91/54 L 99 05/25/18 07:13 36.5 C 92 H 18 109/69 96 Lab Results (24hrs): Laboratory Tests (24 Hours) 05/25/18 05/25/18 05:56 05:56 WBC 0.72 L* Neut # (Auto) 0.10 L* Creatinine 0.78 Est Cr Clr Drug Dosing 133.7 - Risk Factors for Resistance * Immunocompromised (chronic steroid therapy, chemotherapy, immunomodulators) - Assessment & Plan Assessment 58 year old M presenting to the ED because he was vomiting blood. Patient has history of esophageal cancer. Patient originally placed on Zosyn for possible aspiration pneumonia, but spiked a fever and has a WBC of 0.72, so addition of Vanco added empirically for at least 48 hours until blood cultures result. Blood cultures currently show no growth. Plan Vancomycin and Zosyn for treatment of neutropenic fever and possible aspiration pneumonia. Vancomycin IV * Estimated PK Parameters: Vd 0.61 L/kg, Epifanio 0.1 hr-1, t1/2 7 hr * Loading dose: 2500 mg (23 mg/kg) * Maintenance dose: 1500 mg IV (14 mg/kg) every 8 hours * Goal trough level for Neutropenic Fever/Pulm: 15 to 20 mcg/mL * Trough level ordered for 05/26/18 at 0730 Piperacillin/tazobactam * 4.5 g bolus administered over 30 minutes, then 4.5 g IV extended infusion every 8 hours for CrCl greater than 20 mL/min Pharmacy will continue to follow and will adjust dose/frequency as necessary. Thank you.
[2018-05-26] MEDS: PANTOprazole 40 MG in DEXTROSE 5% 100 ML IV SCH ×5 (03:07→22:08)
[2018-05-26] MEDS: PROMETHAZINE HCL 25 MG in SODIUM CHLORIDE 0.9% 50 ML IV PRN ×4 (03:49→22:08)
[2018-05-26] MEDS ORDERED: VANCOMYCIN TROUGH ONE (07:30)
[2018-05-26 07:51] LABS: Hematocrit (blood only) 28.2 % (42-52); Mean Corpuscular Hgb Conc 35.5 g/dL (32-36); Mean Corpuscular Volume 88.4 fL (80-100); Mean Platelet Volume 9.9 fL (7.4-10.4); Nucleated RBC # (auto) 0.02 K/uL (0-0); Nucleated RBC % (auto) 1.7 %; Platelet Count 81 K/uL (130-400); RDW Coefficient of Variation 16.6 % (11.5-14.5); RDW Standard Deviation 51.6 fL (36.4-46.3); Red Blood Count 3.19 M/uL (4.7-6.1); White Blood Count 0.89 K/uL (4.8-10.8)
[2018-05-26] MEDS: PIPERACILLIN/TAZOBACTAM 4.5 GM in DEXTROSE 5% 100 ML IV SCH ×3 (08:11→23:42)
[2018-05-26] MEDS: VANCOMYCIN HCL 1,500 MG in SODIUM CHLORIDE 0.9% 500 ML IV SCH (08:12)
[2018-05-26] MEDS: SUCRALFATE 1 GM/10 ML UDC PO SCH ×4 (08:17→20:44)
[2018-05-26 08:18] LABS: Blood Urea Nitrogen < 1 mg/dl (7-18); Calcium 7.8 mg/dl (8.5-10.1); Carbon Dioxide 24 mmol/L (21-32); Chloride 106 mmol/L (98-107); Creatinine Clr Calc Pharmacy 139.2 ml/min; Est GFR (African American) 117.2; Est GFR (Non-African American) 101.1; Glucose 122 mg/dl (70-99); Potassium 2.9 mmol/L (3.5-5.1); Sodium 137 mmol/L (136-145)
[2018-05-26] MEDS: INSULIN ASPART 100 UNITS/ML 3 ML PEN SC SCH ×4 (08:19→20:12)
[2018-05-26] MEDS: POTASSIUM CHLORIDE / WTR 10 MEQ/100 ML PLCT IV SCH ×3 (09:01→11:31)
--- NOTE | 2018-05-26 09:06 | Gastroenterology Progress Note ---
Date of Service May 26, 2018 Assessment & Plan (1) Hematemesis: Likely secondary to radiation esophagitis and possibly also oozing from the malignancy. Would avoid EGD as high risk with leukopenia and because he has not had a significant drop in Hb/Hct. Restart soft diet. Continue BID PPI, QID carafate, antiemetics. Once radiation is restarted, suggested to the pt that he take ondansetron prior to radiation treatments instead of after nausea begins. Regarding risks/benefits of anticoagulation on Lovenox. If deemed necessary by hem/onc, then would check Hb/Hct atleast weekly. Would reconsider EGD if Hb drops. Present on Admission?: Yes Supervising Physician Co-Signing Physician Notes I have performed a history and physical examination of this patient and reviewed the electronic medical record. Specifically, on history there is persistent nausea, Hgb stable. I have discussed the case with JUDIE Alvarenga. The above note reflects my findings, conclusions, and recommendations. Fransisco Gomez MD Subjective Mr. Gio Skinner is a 58 yr old male admitted for hematemesis in the setting of GE junction malignancy, undergoing chemoradiation. He has had nausea/vomiting after each radiation treatment for weeks, then experienced hematemesis 05/22. This continued during the hospitalization but has decreased in frequency and amt. Most recent hematemesis was a small amt yesterday. Hb stable: On arrival, Hb11.5, yesterday 9.9, today 0.89. Leukopenic - related to chemotherapy: WBC today 0.89. Pt awake alert this morning. Hungry, asks to eat. Hasn't had solid food since last . Denies any current nausea, chest or abdominal pain Constitutional: + fatigue, + weakness and + weight loss; no fever, no chills and no body aches no icterus Ear, Nose, Mouth, Throat: no dizziness, no mouth lesions and no dry mouth Respiratory: no cough, no chest congestion and no dyspnea Cardiovascular: no chest pain, no dyspnea and no palpitations Gastrointestinal: as per Subjective / HPI; no abdominal pain Musculoskeletal: no back pain, no neck pain and no joint pain Neurologic: no unsteadiness and no falls Psychiatric: + change in appetite; no depression and no hopelessness Hematologic / Lymphatic: no easy bleeding, no easy bruising and no lymphadenopathy Physical Exam Vital Signs (Past 24 Hours): Last Vital Signs Temp 37.1 C 05/26/18 06:50 Pulse 96 H 05/26/18 06:50 Resp 20 05/26/18 06:50 BP 111/75 05/26/18 06:50 Pulse Ox 96 05/26/18 06:50 Constitutional: well developed and cooperative Eyes: PERRL, conjunctivae normal, anicteric sclerae Respiratory: normal respiratory effort, lungs clear to auscultation normal respiratory effort and able to speak in complete sentences; no respiratory distress, no labored breathing, does not use accessory muscles and no cough Cardiovascular: RRR, no murmur, no edema Gastrointestinal (Abdomen): Inspection/Auscultation: abdomen normal to inspection and + hypoactive bowel sounds; abdomen not distended and no abdominal edema Percussion/Palpation: + abdomen tender (Mild diffuse adbdominal msk tenderness. No signs of acute abdomen.) and abdomen soft; no guarding and abdomen not rigid Skin: no rashes, warm and dry normal turgor and + pallor Neurologic: PERRL, EOMI, accommodation nl, no face palsy, no dysarthria awake; not confused Psychiatric: A+Ox3, euthymic affect Orientation: alert, oriented x 3 and cooperative Results & Data Diagnostic Findings CT chest 05/22: . No evidence of focal pulmonary consolidation. 2. No pleural effusions. No suspicious pulmonary masses. 3. Diffuse esophageal wall thickening with infiltration of the periesophageal fat. While likely related to interval radiation therapy, a mediastinitis cannot be excluded. No pneumomediastinum is visualized. Medications Administered PPIs, Carafate Lovenox was held (1) Hematemesis Nausea presence: with nausea Qualified Code(s): K92.0 - Hematemesis
--- NOTE | 2018-05-26 15:20 | Hospitalist Progress Note ---
Date of Service May 26, 2018 Assessment & Plan (1) Hematemesis: Possible related to radiation esophagitis CT chest showed diffuse esophageal wall thickening with infiltration of the periesophageal fat. Soft Tissue neck CT showed paraesophageal mediastinal infiltration may be related to radiation change and reflect postradiation esophagitis Hbg on admission 11.5, today 10.1 Had one episode hematemesis last night with trace of blood Starting on a soft diet Will change PPI drip to IV BID Continue Sucralfate for now GI was on board EGD cancelled today due to high risk with leukopenia and since his hemoglobin has been stable OK with GI to restart lovenox Will need weekly CBC check to monitor hemoglobin Continue monitor hemoglobin Neutropenic fever WBC 0.9 Continue IV Zosyn and Vanco Blood cx no growth Continue monitor closely If continues to have fever, will consult ID Advanced adenocarcinoma of the gastroesophageal junction Case discussed with Radiation oncology today Dr. Cooper that will hold on radiation for today, plan to resume on Saturday Follows with [facility] oncology clinic with Dr. 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 Lovenox on hold for now due to hematemesis Was on IV heparin drip that was placed on hold due to hematemesis episode Since hemoblobin has been stable, Lovenox 100mg BID resume due of thrombosis Hemoglobin stable at 10 Continue monitor closely Pancytopenia Platelet dropped to 81 today Hemoglobin 10 today Hematology/oncology on board No platelet transfusion for now as per oncology Monitor CBC Type 2 diabetes mellitus not on extermination inspector use of insulin at home Hold home dose metformin Place on sliding scale insulin Monitor BS Hypokalemia K 2.9 K replaced Continue IVF with NSS +KCL Monitor BMP DVT ppx: Resume Lovenox 100mg suq On SCD Full Code Disposition Continue monitor CBC closely Subjective Pt was seen and examined Sitting in bed with no distress Pt said that he feels fine He said that he had a very small trace of blood in his vomit last night He said that the nausea medication helps He said that he has been able to sleep He had a low grade fever last night Denies any chest pain, palpitation, dizziness and SOB Physical Exam Vital Signs (Past 24 Hours): Last Vital Signs Temp 37.2 C 05/26/18 11:21 Pulse 88 05/26/18 11:21 Resp 18 05/26/18 11:21 BP 100/64 05/26/18 11:21 Pulse Ox 96 05/26/18 11:21 Physical Exam: General- No acute distress Head- atraumatic Eyes- PERRL, EOMI, ENT- oropharynx clear Neck- supple, no JVD Lungs- clear to auscultation Heart- regular rhythm; no murmur Abdomen- normal bowel sounds, soft, nontender Extremities- no calf tenderness Neuro- alert, oriented x 3; PERRL, EOMI; no facial palsy; no dysarthria Skin- warm & dry (1) Hematemesis Nausea presence: with nausea Qualified Code(s): K92.0 - Hematemesis
[2018-05-26] MEDS: NSS + 20MEQ KCL 20 MEQ/1,000 ML BAG IV SCH (15:34)
[2018-05-26] MEDS: VANCOMYCIN HCL 1,750 MG in SODIUM CHLORIDE 0.9% 500 ML IV SCH ×2 (15:55→23:43)
[2018-05-26] MEDS: ENOXAPARIN 100 MG/1ML SYR SQ SCH (16:15)
--- NOTE | 2018-05-26 16:57 | Hematology/Oncology Prog Note ---
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 Initial staging T3 N3 - Receiving systemic chemotherapy with modified FOLFOX 6 since December 2017 with very good response. - Receiving radiation treatment to the lower esophageal mass - Admitted for upper GI bleed related to the radiation esophagitis possible bleeding from the tumor. Also a case of cerebral sinus thrombosis, he was on Lovenox earlier, change to IV heparin but because of upper GI bleed heparin was on hold. Over the weekend he did quite well, no new episode of upper GI bleed, agree about restarting Lovenox. I saw him at bedside, his was also bedside, he is feeling much better, no new upper GI bleed, no abdominal discomfort, no new cardiac or pulmonary symptoms no dysphagia, no leg edema. Blood workup done on 05/26/2018: - WBC 0.89, H&H of 10/28, Platelet count of 81,000. - Potassium 2.9 - BUN/creatinine: less than 1/0.7, calcium 7.8 Blood culture �> No growth as of now. Will continue Lovenox for treatment and prevention of thrombotic complications. He is due for next cycle of chemotherapy this week but because of low ANC and low platelet count, he is not ready for the treatment, may require 1 to 2 weeks to improve the blood count, also likely to require dose adjustment in the chemotherapy, perhaps omitting 5-fluorouracil bolus, if he continues to have neutropenia, we may have to consider for prophylactic Neulasta. He will continue to have follow-up with Dr. Orantes as an outpatient. William Cooper MD Hem/Onc Physical Exam Vital Signs (Past 24 Hours): Last Vital Signs Temp 37.2 C 05/26/18 11:21 Pulse 88 05/26/18 11:21 Resp 18 05/26/18 11:21 BP 100/64 05/26/18 11:21 Pulse Ox 96 05/26/18 11:21
[2018-05-26] MEDS: ACETAMINOPHEN 65 ML IV PRN (19:23)
[2018-05-26 20:24] LABS: Hematocrit (blood only) 26.9 % (42-52); Hemoglobin 9.2 g/dL (14.0-18.0)
[2018-05-27] MEDS: PANTOprazole 40 MG in DEXTROSE 5% 100 ML IV SCH ×2 (02:48→07:42)
[2018-05-27 06:47] LABS: Hematocrit (blood only) 28.5 % (42-52); Hemoglobin 9.5 g/dL (14.0-18.0); Mean Corpuscular Hgb Conc 33.3 g/dL (32-36); Mean Corpuscular Volume 89.1 fL (80-100); Mean Platelet Volume 10.3 fL (7.4-10.4); Nucleated RBC # (auto) 0.02 K/uL (0-0); Nucleated RBC % (auto) 1.6 %; Platelet Count 118 K/uL (130-400); RDW Coefficient of Variation 16.7 % (11.5-14.5); RDW Standard Deviation 53.6 fL (36.4-46.3); White Blood Count 1.43 K/uL (4.8-10.8)
[2018-05-27 07:18] LABS: BUN Creatinine Ratio 3.5 (10-20); Calcium 7.9 mg/dl (8.5-10.1); Creatinine Clr Calc Pharmacy 99.1 ml/min; Est GFR (African American) 90.3; Est GFR (Non-African American) 77.9; Potassium 3.3 mmol/L (3.5-5.1)
[2018-05-27] MEDS: INSULIN ASPART 100 UNITS/ML 3 ML PEN SC SCH ×4 (07:32→21:09)
[2018-05-27] MEDS: PROMETHAZINE HCL 25 MG in SODIUM CHLORIDE 0.9% 50 ML IV PRN ×3 (07:32→23:55)
[2018-05-27] MEDS: ENOXAPARIN 100 MG/1ML SYR SQ SCH ×2 (07:33→21:06)
[2018-05-27] MEDS: SUCRALFATE 1 GM/10 ML UDC PO SCH ×4 (07:34→21:08)
[2018-05-27] MEDS: PIPERACILLIN/TAZOBACTAM 4.5 GM in DEXTROSE 5% 100 ML IV SCH ×3 (07:41→23:55)
[2018-05-27] MEDS: VANCOMYCIN HCL 1,750 MG in SODIUM CHLORIDE 0.9% 500 ML IV SCH ×3 (07:42→23:56)
[2018-05-27] MEDS ORDERED: POTASSIUM CHLORIDE 10 MEQ TABCR PO STA (07:56)
[2018-05-27] MEDS: NSS + 20MEQ KCL 20 MEQ/1,000 ML BAG IV SCH (11:03)
--- NOTE | 2018-05-27 11:13 | Infectious Disease Consult ---
Date of Consultation May 27, 2018 Assessment & Plan (1) Neutropenic fever: 58-year-old male with known esophageal cancer on chemotherapy and radiation therapy, with fever and neutropenia. Temperature curve appears to be improving with recovery of white blood cell count, but need to be concerned about the possibility of development of mediastinitis given CT findings. Would continue on IV antibiotics for now, may consider transition to oral Augmentin in the near future if remains afebrile and white count recovers. Will follow. History of Present Illness Reason for Consultation: Neutropenic fever Attending Physician: Lizzie Rodney MD History of Present Illness 58 year-old male with known esophageal carcinoma, diagnosed December 2017, currently on chemotherapy and radiation therapy, who was admitted on May 24 with several days of hematemesis. He was found to have evidence on CT scan of esophagitis, with possible paraesophageal infiltration of soft tissue. He was noted to be persistently neutropenic, and had fever upon admission. He was started empirically on Zosyn and vancomycin. Blood cultures have been negative. He has improved with near resolution of hematemesis, and apart from weakness and fatigue feeling better. No increase in cough or shortness of breath. No significant abdominal pain, no urinary complaints. Allergies Allergy/AdvReac Type Severity Reaction Status Date / Time Iodinated Contrast- Oral and AdvReac Sneezing, Verified 05/22/18 12:39 IV Dye watery eyes, and tight feeling throat Home Medications Home Medications Medication Instructions Recorded Confirmed Type fenofibrate nanocrystallized 145 145 mg PO QAM 12/24/17 05/22/18 History mg tablet metformin [Glucophage] 1,000 mg PO BID 01/19/18 05/22/18 History ondansetron HCl [Zofran] 8 mg PO Q8 PRN 01/19/18 05/22/18 History prochlorperazine maleate 10 mg PO Q6 PRN 01/19/18 05/22/18 History lisinopril 5 mg PO QAM 03/22/18 05/22/18 History sucralfate 100 mg/mL oral 10 ml PO QID #420 ml 05/06/18 05/22/18 Rx suspension omeprazole 20 mg PO DAILY PRN 05/17/18 05/22/18 History promethazine [Phenergan] 25 mg ID Q6H PRN #12 ea 05/17/18 05/22/18 Rx Magic Swizzle 10 ml PO UD 05/22/18 05/22/18 History cyanocobalamin (vitamin B-12) 5,000 mcg SUBLINGUAL DAILY 05/22/18 05/22/18 History enoxaparin 100 mg SUBCUT Q12 05/22/18 05/22/18 History venlafaxine 1.5 tabs PO DAILY 05/22/18 05/22/18 History Patient History Medical History Cancer of lower third of esophagus (Acute) Dysphasia Status post upper GI endoscopy and biopsy November 26, 2017 Adenocarcinoma of the esophagus, poorly differentiated Status post upper EUS December 09, 2017 Lesion 10 cm Status post PET/CT December 05, 2017 Stage uT3 uN3 cM0 Diabetes (Chronic) Appendicitis with perforation (Acute 07/08/13) Perforated appendicitis (Acute 08/10/13) RLQ abdominal pain (Acute) Sleep apnea (Acute 08/10/13) Depression (Acute) Hyperlipidemia (Acute) Diabetes (Chronic) Esophageal cancer (Chronic) Hypertension (Chronic) Sleep apnea (Chronic) C. difficile colitis (Resolved) Surgical History History of appendectomy History of umbilical hernia repair (Resolved) History of colonoscopy (Resolved) H/O colonoscopy (Resolved) H/O sinus surgery (Resolved) H/O umbilical hernia repair (Resolved) History of appendectomy (Resolved) Family History Mother Cardiac disease Diabetes Father , 70yo;Cancerous brain tumor;bladder cancer; No problems noted. Brother No problems noted. Brother No problems noted. Social History Communication Ability: Effective Beliefs That Will Affect Care: None marital status: Current Living Situation: Spouse current occupational status: employed current occupation: Works at [employer]; Feels Safe at Home: Yes Smoking Status: Former smoker Hx Alcohol Use: No Hx Substance Use: No during the past year weight has: remained stable Review of Systems All systems were reviewed and are negative except as per HPI Physical Exam Vital Signs (Past 24 Hours): Last Vital Signs Temp 36.8 C 05/27/18 07:24 Pulse 87 05/27/18 07:24 Resp 16 05/27/18 07:24 BP 104/69 05/27/18 07:24 Pulse Ox 95 05/27/18 07:24 Constitutional: WD/WN, vitals as above comfortable; no acute distress Eyes: PERRL, conjunctivae normal, anicteric sclerae ENMT: external ear and nose normal, oropharynx normal Neck: trachea midline, no thyromegaly neck nontender Respiratory: normal respiratory effort, lungs clear to auscultation normal percussion; does not use accessory muscles Cardiovascular: Rate/Rhythm: regular rate and regular rhythm Heart Sounds: normal S1 and normal S2; no gallop, no murmur and no cardiac rub Vessels: normal peripheral pulses; no JVD Gastrointestinal (Abdomen): normal bowel sounds, soft, nontender, no hepatosplenomegaly Musculoskeletal: no cyanosis or clubbing, extremities motor strength 5/5 Spine: thoracic spine normal to inspection and lumbar spine normal to inspection; no cervical spinal tenderness Skin: no rashes, warm and dry normal turgor; no lesions Neurologic: patellar DTR's 2+ bilat, sensation intact no focal motor deficits Psychiatric: A+Ox3, euthymic affect Orientation: cooperative Lymphatic: no cervical or axillary lymphadenopathy no inguinal lymphadenopathy Results & Data Laboratory Results Short CBC 05/26/18 05/27/18 Range/Units 20:03 06:36 WBC 1.43 L (4.8-10.8) K/uL Hgb 9.2 L 9.5 L (14.0-18.0) g/dL Hct 26.9 L 28.5 L (42-52) % Plt Count 118 L (130-400) K/uL BMP 05/26/18 05/27/18 20:03 06:36 Sodium 142 Potassium 3.0 L 3.3 L Chloride 110 H Carbon Dioxide 24 BUN 4 L Creatinine 1.05 Glucose 99 Calcium 7.9 L Diagnostic Findings Microbiology 05/24/18 01:07 Blood Blood Culture - Preliminary No growth to date. 05/24/18 01:06 Blood Blood Culture - Preliminary No growth to date. CT chest wo con CLINICAL HISTORY: esphogeal CA - hemoptysis/hematemesis COMPARISON STUDY: April 01, 2018 CT DOSE: TECHNIQUE: CT of the thorax was performed from the thoracic inlet to the lung bases. Images are reviewed in the axial, sagittal, and coronal planes. IV contrast was not administered for this examination. A dose lowering technique was utilized adhering to the principles of ALARA. FINDINGS: A right-sided A-Port catheter is visualized. Thyroid: There is a 1 cm rim calcified right lobe thyroid nodule. Thoracic aorta: The thoracic aorta is normal in course and caliber, noting standard 3 vessel arch anatomy. Heart: The heart is normal in size. There is no significant pericardial effusion. There are coronary artery calcifications. Lungs and pleural spaces: There are no pleural effusions. There is no focal pulmonary consolidation. Mediastinum: There are paratracheal lymph nodes at the upper limits of normal in size. Roberta: There is no evidence of pathologic hilar adenopathy given the limitations of a noncontrast study Axilla: There is no evidence of pathologic axillary lymphadenopathy Upper abdomen: There is soft tissue thickening of the esophagus most pronounced at the level the esophagogastric junction. There is however diffuse esophageal wall thickening involving the entire thoracic esophagus. There is mild infiltration of the periesophageal fat. Skeletal structures: There are no lytic or blastic osseous lesions. IMPRESSION: 1. No evidence of focal pulmonary consolidation. 2. No pleural effusions. No suspicious pulmonary masses. 3. Diffuse esophageal wall thickening with infiltration of the periesophageal fat. While likely related to interval radiation therapy, a mediastinitis cannot be excluded. No pneumomediastinum is visualized. Electronically signed by: Donald Umanzor M.D. 05/22/2018 1:41 PM Dictated: 05/22/18 1332 Transcribed: 05/22/18 1332
--- NOTE | 2018-05-27 13:48 | Gastroenterology Progress Note ---
Date of Service May 27, 2018 Assessment & Plan (1) Hematemesis: Likely secondary to radiation esophagitis and possibly also oozing from the malignancy. Would avoid EGD as high risk with leukopenia and because he has not had a significant drop in Hb/Hct. Continue soft diet. Continue BID PPI, QID carafate, antiemetics. Once radiation is restarted, suggested to the pt that he take ondansetron prior to radiation treatments instead of after nausea begins. Regarding risks/benefits of anticoagulation on Lovenox. Would expect continued oozing from the malignancy. If anticoagulation deemed necessary by hem/onc, then would check Hb/Hct at least weekly. Would reconsider EGD if Hb drops. Supervising Physician Co-Signing Physician Notes I have performed a history and physical examination of this patient and reviewed the electronic medical record. Specifically, on physical examination there is no abdominal tendernss. On history there is dysphagia. I have discussed the case with JUDIE Alvarenga. The above note reflects my findings, conclusions, and recommendations. Fransisco Gomez MD Subjective Mr. Gio Skinner is a 58 yr old male admitted for hematemesis in the setting of GE junction malignancy, undergoing chemoradiation. Endoscopy deferred as the procedure would be unlikely to affect outcome. Hb stable: On arrival, Hb11.5, yesterday 9.9, today 9.5. Leukopenia improved - related to chemotherapy: 0.89 ->1.4 Pt awake alert this morning. Eating soft food well. No further vomiting. Constitutional: + fatigue (much improved) and + weight loss; no fever, no chills and no body aches Gastrointestinal: as per Subjective / HPI; no abdominal pain Psychiatric: + change in appetite; no depression and no hopelessness Physical Exam Vital Signs (Past 24 Hours): Last Vital Signs Temp 37 C 05/27/18 11:36 Pulse 75 05/27/18 11:36 Resp 16 05/27/18 11:36 BP 113/73 05/27/18 11:36 Pulse Ox 97 05/27/18 11:36 Constitutional: well developed and cooperative Eyes: PERRL, conjunctivae normal, anicteric sclerae Respiratory: normal respiratory effort, lungs clear to auscultation normal respiratory effort and able to speak in complete sentences; no respiratory distress, no labored breathing, does not use accessory muscles and no cough Cardiovascular: RRR, no murmur, no edema Gastrointestinal (Abdomen): normal bowel sounds, soft, nontender, no hepatosplenomegaly Inspection/Auscultation: abdomen normal to inspection Skin: no rashes, warm and dry normal turgor and + pallor Neurologic: PERRL, EOMI, accommodation nl, no face palsy, no dysarthria awake; not confused Psychiatric: A+Ox3, euthymic affect Orientation: alert, oriented x 3 and cooperative (1) Hematemesis Nausea presence: with nausea Qualified Code(s): K92.0 - Hematemesis
--- NOTE | 2018-05-27 18:28 | Hospitalist Progress Note ---
Date of Service May 27, 2018 Assessment & Plan (1) Hematemesis: Possible related to radiation esophagitis CT chest showed diffuse esophageal wall thickening with infiltration of the periesophageal fat. Soft Tissue neck CT showed paraesophageal mediastinal infiltration may be related to radiation change and reflect postradiation esophagitis Hbg on admission 11.5, today 9.5 No episodes of hematemesis Tolerated diet Continue PPI BID Continue Sucralfate for now GI was on board EGD cancelled today due to high risk with leukopenia and since his hemoglobin has been stable OK from GI to restart lovenox GI recommended to give Zofran after radiation therapy Will need weekly CBC check to monitor hemoglobin Continue monitor hemoglobin Neutropenic fever WBC 0.9 Continue IV Zosyn and Vanco Blood cx no growth Continue monitor closely ID on board and recommended to continue IV Vanco and Zosyn Advanced adenocarcinoma of the gastroesophageal junction Case discussed with Radiation oncology today Dr. Cooper that will hold on radiation for today, plan to resume on Saturday Follows with [facility] oncology clinic with Dr. 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 Lovenox on hold for now due to hematemesis Was on IV heparin drip that was placed on hold due to hematemesis episode Since hemoblobin has been stable, Lovenox 100mg BID resumed due of thrombosis Hemoglobin stable at 9.5 Continue monitor closely Pancytopenia Platelet dropped to 118 today Hemoglobin 9.5 today Hematology/oncology on board No platelet transfusion for now as per oncology Monitor CBC Type 2 diabetes mellitus not on group home use of insulin at home Hold home dose metformin Place on sliding scale insulin Monitor BS Hypokalemia K 3.3 K replaced Continue IVF with NSS +KCL Monitor BMP DVT ppx: On Lovenox 100mg suq On SCD Full Code Disposition Continue monitor CBC closely Subjective Pt was seen and examined Lying in bed with no distress Pt said that he feels fine He said that he did not have any episode of hematemesis yesterday and today He spiked a low fever last night Denies any chest pain, palpitation, dizziness and SOB Physical Exam Vital Signs (Past 24 Hours): Last Vital Signs Temp 37 C 05/27/18 11:36 Pulse 86 05/27/18 16:00 Resp 16 05/27/18 11:36 BP 113/73 05/27/18 11:36 Pulse Ox 97 05/27/18 11:36 Physical Exam: General- No acute distress Head- atraumatic Eyes- PERRL, EOMI, ENT- oropharynx clear Neck- supple, no JVD Lungs- clear to auscultation Heart- regular rhythm; no murmur Abdomen- normal bowel sounds, soft, nontender Extremities- no calf tenderness Neuro- alert, oriented x 3; PERRL, EOMI; no facial palsy; no dysarthria Skin- warm & dry (1) Hematemesis Nausea presence: with nausea Qualified Code(s): K92.0 - Hematemesis
[2018-05-27] MEDS: PANTOprazole 40 MG TAB PO SCH (21:09)
[2018-05-28] MEDS ORDERED: VANCOMYCIN TROUGH ONE (07:30)
[2018-05-28 07:35] LABS: Hematocrit (blood only) 29.5 % (42-52); Hemoglobin 9.9 g/dL (14.0-18.0); Mean Corpuscular Hgb Conc 33.6 g/dL (32-36); Mean Corpuscular Volume 89.4 fL (80-100); Mean Platelet Volume 9.8 fL (7.4-10.4); Nucleated RBC # (auto) 0.02 K/uL (0-0); Nucleated RBC % (auto) 1.2 %; Platelet Count 169 K/uL (130-400); RDW Standard Deviation 54.4 fL (36.4-46.3); White Blood Count 1.95 K/uL (4.8-10.8)
[2018-05-28] MEDS: PIPERACILLIN/TAZOBACTAM 4.5 GM in DEXTROSE 5% 100 ML IV SCH (07:39)
[2018-05-28] MEDS: NSS + 20MEQ KCL 20 MEQ/1,000 ML BAG IV SCH (07:40)
[2018-05-28] MEDS: VANCOMYCIN HCL 1,750 MG in SODIUM CHLORIDE 0.9% 500 ML IV SCH (07:40)
[2018-05-28] MEDS: SUCRALFATE 1 GM/10 ML UDC PO SCH ×4 (07:46→20:32)
[2018-05-28] MEDS: ENOXAPARIN 100 MG/1ML SYR SQ SCH ×2 (07:47→20:33)
[2018-05-28] MEDS: PANTOprazole 40 MG TAB PO SCH ×2 (07:48→20:32)
[2018-05-28 08:12] LABS: Creatinine Clr Calc Pharmacy 105.9 ml/min; Est GFR (African American) 96.9; Est GFR (Non-African American) 83.6; Potassium 3.1 mmol/L (3.5-5.1)
[2018-05-28] MEDS: INSULIN ASPART 100 UNITS/ML 3 ML PEN SC SCH ×4 (08:33→20:31)
--- NOTE | 2018-05-28 09:37 | Pharmacy Report ---
Pharmacy Abx Dose Short Note - Date of Service May 28, 2018 - Assessment & Plan A/P Vanco trough at Css 20.5mcg/mL. Will lengthen dosing interval from q8-->q10 to mitigate any vancomycin accumulation/ nephrotoxicity. Will order trough if vanco is to continue. EI Zosyn 4.5g IV q8 continues, appropriate for eCrCl>20cc/min and clinical status. Will discuss with primary team the plan for antibiotics at d/c. Pharmacy will continue to follow and will adjust dose/frequency as necessary. Thank you.
--- NOTE | 2018-05-28 13:05 | Infectious Disease Progress Nt ---
Date of Service May 28, 2018 Assessment & Plan (1) Neutropenic fever: 58-year-old male with known esophageal cancer on chemotherapy and radiation therapy, with fever and neutropenia. Temperature curve appears to be improving with recovery of white blood cell count, but need to be concerned about the possibility of early mediastinitis given CT findings. Would continue on IV antibiotics for now, may consider transition to oral Augmentin for another 2 weeks or so. Subjective Patient seen in follow-up for fever. Appears to be doing better, pain improved, no fever at present. No increase in shortness of breath. Cultures remain negative. Review of Systems All systems reviewed & are unremarkable except as noted in HPI & below Physical Exam Vital Signs (Past 24 Hours): Last Vital Signs Temp 36.8 C 05/28/18 11:49 Pulse 89 05/28/18 11:49 Resp 16 05/28/18 11:49 BP 120/75 05/28/18 11:49 Pulse Ox 93 05/28/18 11:49 Constitutional: WD/WN, vitals as above comfortable; no acute distress Eyes: PERRL, conjunctivae normal, anicteric sclerae ENMT: external ear and nose normal, oropharynx normal Neck: trachea midline, no thyromegaly neck nontender Respiratory: normal respiratory effort, lungs clear to auscultation normal percussion; does not use accessory muscles Cardiovascular: Rate/Rhythm: regular rate and regular rhythm Heart Sounds: normal S1 and normal S2; no gallop, no murmur and no cardiac rub Vessels: normal peripheral pulses; no JVD Gastrointestinal (Abdomen): normal bowel sounds, soft, nontender, no hepatosplenomegaly Musculoskeletal: no cyanosis or clubbing, extremities motor strength 5/5 Spine: thoracic spine normal to inspection and lumbar spine normal to inspection; no cervical spinal tenderness Skin: no rashes, warm and dry normal turgor; no lesions Neurologic: patellar DTR's 2+ bilat, sensation intact no focal motor deficits Psychiatric: A+Ox3, euthymic affect Orientation: cooperative Lymphatic: no cervical or axillary lymphadenopathy no inguinal lymphadenopathy Results & Data Laboratory Results Short CBC 05/28/18 Range/Units 07:26 WBC 1.95 L (4.8-10.8) K/uL Hgb 9.9 L (14.0-18.0) g/dL Hct 29.5 L (42-52) % Plt Count 169 (130-400) K/uL BMP 05/28/18 07:26 Sodium 143 Potassium 3.1 L Chloride 112 H Carbon Dioxide 24 BUN 4 L Creatinine 0.99 Glucose 99 Calcium 8.0 L Diagnostic Findings Microbiology 05/24/18 01:07 Blood Blood Culture - Preliminary No growth to date. 05/24/18 01:06 Blood Blood Culture - Preliminary No growth to date.
[2018-05-28] MEDS ORDERED: POTASSIUM CHLORIDE 20 MEQ TABCR PO ONE (13:15)
[2018-05-28] MEDS ORDERED: POTASSIUM CHLORIDE 10 MEQ TABCR PO STA (15:48)
[2018-05-28] MEDS ORDERED: VANCOMYCIN HCL 1,750 MG in SODIUM CHLORIDE 0.9% 500 ML IV SCH (18:00)
[2018-05-28] MEDS: PROMETHAZINE HCL 25 MG in SODIUM CHLORIDE 0.9% 50 ML IV PRN (18:04)
[2018-05-28] MEDS: POTASSIUM CHLORIDE / WTR 10 MEQ/100 ML PLCT IV SCH ×4 (18:04→21:31)
--- NOTE | 2018-05-28 19:32 | Hospitalist Progress Note ---
Date of Service May 28, 2018 Assessment & Plan (1) Hematemesis: Possible related to radiation esophagitis CT chest showed diffuse esophageal wall thickening with infiltration of the periesophageal fat. Soft Tissue neck CT showed paraesophageal mediastinal infiltration may be related to radiation change and reflect postradiation esophagitis Hbg on admission 11.5, and Hgb generally stable between 9 to 10 Continue PPI BID Continue Sucralfate for now No plans for EGD at this time as per gastroenterology Neutropenic fever had been on IV Zosyn and Vancomycin since 05/24/18 Blood cx no growth antibiotics discontinued on 05/28/18 as WBCs are rising and no identifiable source of infection at this time Advanced adenocarcinoma of the gastroesophageal junction Follows with [facility] oncology clinic with Dr. Churchill follows with Dr. 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 IV potassium supplementation at this time, monitor DVT ppx: On Lovenox 100mg q12hrs Full Code Disposition Continue monitor CBC closely Subjective Patient has been afebrile antibiotics have been discontinued patient not having hematemasis. could not tolerate oral potassium supplements as per nurse. Denies any chest pain, palpitation, dizziness and SOB Physical Exam Vital Signs (Past 24 Hours): Last Vital Signs Temp 36.4 C L 05/28/18 19:26 Pulse 86 05/28/18 19:26 Resp 18 05/28/18 19:26 BP 121/77 05/28/18 19:26 Pulse Ox 98 05/28/18 19:26 Constitutional: WD/WN, vitals as above Eyes: PERRL, conjunctivae normal, anicteric sclerae EOM intact bilaterally ENMT: external ear and nose normal, oropharynx normal Neck: trachea midline, no thyromegaly normal visual inspection Respiratory: normal respiratory effort, lungs clear to auscultation Cardiovascular: RRR, no murmur, no edema Chest (Breasts): Chest: + vascular access device or port Gastrointestinal (Abdomen): normal bowel sounds, soft, nontender, no hepatosplenomegaly Musculoskeletal: no cyanosis or clubbing, extremities motor strength 5/5 Head/Neck/Chest: normocephalic and head atraumatic Neurologic: PERRL, EOMI, accommodation nl, no face palsy, no dysarthria CN's II-XI intact bilaterally Psychiatric: A+Ox3, euthymic affect (1) Hematemesis Nausea presence: with nausea Qualified Code(s): K92.0 - Hematemesis
[2018-05-29] MEDS: ONDANSETRON INJ 2 MG/ML 2 ML VIAL IV PRN ×2 (00:36→07:12)
[2018-05-29 06:31] LABS: BUN Creatinine Ratio 3.8 (10-20); Calcium 7.9 mg/dl (8.5-10.1); Creatinine Clr Calc Pharmacy 110.1 ml/min; Est GFR (African American) 103.2; Potassium 3.2 mmol/L (3.5-5.1)
[2018-05-29] MEDS: D5W AND 1/2NSS 1,000 ML IV SCH (07:12)
[2018-05-29] MEDS: POTASSIUM CHLORIDE / WTR 10 MEQ/100 ML PLCT IV SCH ×6 (07:13→11:52)
[2018-05-29] MEDS: ENOXAPARIN 100 MG/1ML SYR SQ SCH (07:13)
[2018-05-29] MEDS: SUCRALFATE 1 GM/10 ML UDC PO SCH ×2 (07:13→11:53)
[2018-05-29] MEDS: PANTOprazole 40 MG TAB PO SCH (07:14)
[2018-05-29 07:15] LABS: Hematocrit (blood only) 29.2 % (42-52); Hemoglobin 9.7 g/dL (14.0-18.0); Mean Corpuscular Hgb Conc 33.2 g/dL (32-36); Mean Corpuscular Volume 90.4 fL (80-100); Mean Platelet Volume 10.5 fL (7.4-10.4); Nucleated RBC # (auto) 0.03 K/uL (0-0); Nucleated RBC % (auto) 1.1 %; Platelet Count 238 K/uL (130-400); RDW Standard Deviation 55.7 fL (36.4-46.3); Red Blood Count 3.23 M/uL (4.7-6.1); White Blood Count 2.35 K/uL (4.8-10.8)
[2018-05-29 07:23] LABS: Basophils # (auto) 0.01 K/uL (0-0.2); Basophils % (auto) 0.4 %; Eosinophils # (auto) 0.05 K/uL (0-0.5); Eosinophils % (auto) 2.1 %; Immature Granulocytes # (auto) 0.18 K/uL (0.00-0.02); Immature Granulocytes % (auto) 7.7 %; Lymphocytes # (auto) 0.59 K/uL (1.2-3.4); Lymphocytes % (auto) 25.1 %; Monocytes # (auto) 0.91 K/uL (0.11-0.59); Monocytes % (auto) 38.7 %; Neutrophils # (auto) 0.61 K/uL (1.4-6.5)
[2018-05-29] MEDS: INSULIN ASPART 100 UNITS/ML 3 ML PEN SC SCH ×2 (08:02→11:44)
[2018-05-29 11:31] VITALS: PULSE 96; TEMP 98.2; O2SAT 96
[2018-05-29] MEDS ORDERED: AMOXICILLIN/CLAVULANATE 500 MG TAB PO SCH (12:00)
[2018-05-29 14:14] VITALS: BP 105/68
[2018-05-29] MEDS ORDERED: ONDANSETRON 8 MG TABLET PO PRN (14:35)
--- NOTE | 2018-05-29 14:48 | Hospitalist Progress Note ---
Date of Service May 29, 2018 Assessment & Plan (1) Hematemesis: Possible related to radiation esophagitis CT chest showed diffuse esophageal wall thickening with infiltration of the periesophageal fat. Soft Tissue neck CT showed paraesophageal mediastinal infiltration may be related to radiation change and reflect postradiation esophagitis Hbg on admission 11.5, and Hgb generally stable between 9 to 10 Continue Sucralfate home dose and protonix No plans for EGD at this time as per gastroenterology Neutropenic fever had been on IV Zosyn and Vancomycin since 05/24/18 to 05/28/18 Blood cx no growth antibiotics discontinued on 05/28/18 as WBCs are rising and no identifiable source of infection at this time 05/29/18 Augmentin started as recommended by infectious disease service Prescription of antibiotic augmentin 500 mg TID for 14 days as recommended by infectious disease service Advanced adenocarcinoma of the gastroesophageal junction Follows with [facility] oncology clinic with Dr. Churchill follows with Dr. 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 Pancytopenia numbers appear to be stable or improving on general Type 2 diabetes mellitus not on buttermaker continuous churn use of insulin at home Hold home dose metformin Place on sliding scale insulin Monitor BS Hypokalemia K 3.2 and patient has received multiple rounds of IV potassium riders potassium 10 meq daily for 30 days as outpatient DVT ppx: On Lovenox 100mg q12hrs Full Code Discharge Diagnosis Hematemesis, Advanced adenocarcinoma of the gastroesophageal junction, History of 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 , anticoagulated by anticoagulation therapy, Pancytopenia Neutropenic Fever, Hypokalemia, Type 2 diabetes mellitus not on buttermaker continuous churn use of insulin Discharge Instructions Patient is discharged to home Prescription of antibiotic augmetin 500 mg TID for 14 days, potassium 10 meq daily for 30 days, odansetron 8 mg every 8 hours as need for nausea have been electronically sent to patient's pharmacy Patient has follow up appointments 05/30/2018 6:15 PM Provider Wade Chavez Sp Department Pharmacy, [facility] 06/03/2018 11:00 AM Provider Jason Martin III, MD Department Family Practice [facility] 06/10/2018 8:15 AM Provider Lab [facility] Department Laboratory [facility] 06/10/2018 8:45 AM Provider Pollo Churchill MD Department Hematology/Oncology [facility] 06/10/2018 9:15 AM Provider Chair 6 Hem Onc [facility] Department Hematology /Oncology Treatment, [place] 06/25/2018 9:20 AM Provider Alicja Rivas PA-C Department Neurology [facility] Patient should also follow up with radiation oncology at [facility] with Dr. Moira Cooper and his colleagues Subjective Patient has been afebrile off IV antibiotics Denies any chest pain, palpitation, dizziness and SOB Patient needed multiple IV potassium riders as serum potassium 3.2 today. Patient agrees to try oral potassium as outpatient Physical Exam Vital Signs (Past 24 Hours): Last Vital Signs Temp 36.8 C 05/29/18 14:13 Pulse 96 H 05/29/18 14:13 Resp 20 05/29/18 14:13 BP 105/68 05/29/18 14:13 Pulse Ox 96 05/29/18 14:13 Constitutional: WD/WN, vitals as above Eyes: PERRL, conjunctivae normal, anicteric sclerae EOM intact bilaterally ENMT: external ear and nose normal, oropharynx normal Neck: trachea midline, no thyromegaly normal visual inspection Respiratory: normal respiratory effort, lungs clear to auscultation Cardiovascular: RRR, no murmur, no edema Chest (Breasts): Chest: + vascular access device or port Gastrointestinal (Abdomen): normal bowel sounds, soft, nontender, no hepatosplenomegaly Musculoskeletal: no cyanosis or clubbing, extremities motor strength 5/5 Head/Neck/Chest: normocephalic and head atraumatic Neurologic: PERRL, EOMI, accommodation nl, no face palsy, no dysarthria CN's II-XI intact bilaterally Psychiatric: A+Ox3, euthymic affect (1) Hematemesis Nausea presence: with nausea Qualified Code(s): K92.0 - Hematemesis
--- NOTE | 2018-05-29 14:54 | Discharge Summary ---
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 Churchill; also have been on cycle 9 of 12 FOLFOX chemotherapy; history of as per outpatient oncology notes patient was suppose due to complete radiation therapy on 05/22/18 but patient presents to hospital on 05/22/18 (had recent ER visit for nausea and vomiting) who presents to the ED on 05/22/18 vomiting a clot of of blood yesterday prior to this ED presentation and subsequent smaller episodes of vomiting with blood Patient denies lightheadedness or shortness of breath. Reports only chest discomfort when vomiting. denies abdominal pain. When seen by hospitalist after ED provider completed CT neck and patient generally comfortable and asymptomatic. able to speak in full sentences while breathing on room air and answering questions appropriately. denies changes in urination or with bowel movements. Denies blood in urine of in stool Admission Exam Per Admitting Provider Constitutional: WD/WN, vitals as above Eyes: PERRL, conjunctivae normal, anicteric sclerae EOM intact bilaterally ENMT: external ear and nose normal, oropharynx normal Neck: trachea midline, no thyromegaly normal visual inspection Respiratory: normal respiratory effort, lungs clear to auscultation Cardiovascular: RRR, no murmur, no edema Chest (Breasts): Chest: + vascular access device or port Gastrointestinal (Abdomen): normal bowel sounds, soft, nontender, no hepatosplenomegaly Musculoskeletal: no cyanosis or clubbing, extremities motor strength 5/5 Head/Neck/Chest: normocephalic and head atraumatic Neurologic: PERRL, EOMI, accommodation nl, no face palsy, no dysarthria CN's II-XI intact bilaterally Psychiatric: A+Ox3, euthymic affect Principal Diagnosis Hematemesis, Advanced adenocarcinoma of the gastroesophageal junction, History of 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 , anticoagulated by anticoagulation therapy, Pancytopenia Neutropenic Fever, Hypokalemia, Type 2 diabetes mellitus not on fpc use of insulin Discharge Exam Constitutional WD/WN, vitals as above Eyes PERRL, conjunctivae normal, anicteric sclerae EOM intact bilaterally ENMT external ear and nose normal, oropharynx normal Neck trachea midline, no thyromegaly normal visual inspection Respiratory normal respiratory effort, lungs clear to auscultation Cardiovascular RRR, no murmur, no edema Chest (Breasts) Chest: + vascular access device or port Gastrointestinal (Abdomen) normal bowel sounds, soft, nontender, no hepatosplenomegaly Musculoskeletal no cyanosis or clubbing, extremities motor strength 5/5 Head/Neck/Chest: normocephalic and head atraumatic Neurologic PERRL, EOMI, accommodation nl, no face palsy, no dysarthria CN's II-XI intact bilaterally Psychiatric A+Ox3, euthymic affect Discharge Data Allergies Allergy/AdvReac Type Severity Reaction Status Date / Time Iodinated Contrast- Oral and AdvReac Sneezing, Verified 05/22/18 12:39 IV Dye watery eyes, and tight feeling throat Consultations 05/22/18 12:58 ED Decision to Admit Stat 05/22/18 15:56 Consult Oncology Routine 05/24/18 08:07 Consult Gastroenterology Routine 05/27/18 10:23 Consult Infectious Diseases Routine Procedures Performed Operation Date: 05/26/18 10:45 <No data on this case meets the specified criteria> Ordered Studies 05/22/18 11:24 CT chest wo con Stat CT soft tissue neck wo con Stat Hospital Course (1) Hematemesis: Possible related to radiation esophagitis CT chest showed diffuse esophageal wall thickening with infiltration of the periesophageal fat. Soft Tissue neck CT showed paraesophageal mediastinal infiltration may be related to radiation change and reflect postradiation esophagitis Hbg on admission 11.5, and Hgb generally stable between 9 to 10 Continue Sucralfate home dose and protonix No plans for EGD at this time as per gastroenterology Neutropenic fever had been on IV Zosyn and Vancomycin since 05/24/18 to 05/28/18 Blood cx no growth antibiotics discontinued on 05/28/18 as WBCs are rising and no identifiable source of infection at this time 05/29/18 Augmentin started as recommended by infectious disease service Prescription of antibiotic augmentin 500 mg TID for 14 days as recommended by infectious disease service Advanced adenocarcinoma of the gastroesophageal junction Follows with [facility] clinic with Dr. Churchill follows with Dr. 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 Pancytopenia numbers appear to be stable or improving on general Type 2 diabetes mellitus not on fpc use of insulin at home Hold home dose metformin Place on sliding scale insulin Monitor BS Hypokalemia K 3.2 and patient has received multiple rounds of IV potassium riders potassium 10 meq daily for 30 days as outpatient DVT ppx: On Lovenox 100mg q12hrs Full Code Discharge Diagnosis Hematemesis, Advanced adenocarcinoma of the gastroesophageal junction, History of 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 , anticoagulated by anticoagulation therapy, Pancytopenia Neutropenic Fever, Hypokalemia, Type 2 diabetes mellitus not on fpc use of insulin Discharge Instructions Patient is discharged to home Prescription of antibiotic augmetin 500 mg TID for 14 days, potassium 10 meq daily for 30 days, odansetron 8 mg every 8 hours as need for nausea have been electronically sent to patient's pharmacy Patient has follow up appointments 05/30/2018 6:15 PM Provider Wade Chavez Sp Department Pharmacy, [facility] 06/03/2018 11:00 AM Provider Jason Martin III, MD Department Family Practice [facility] 06/10/2018 8:15 AM Provider Lab [facility] Department Laboratory [facility] 06/10/2018 8:45 AM Provider Pollo Churchill MD Department Hematology/Oncology [facility] 06/10/2018 9:15 AM Provider Chair 6 Hem Onc [facility] Department Hematology/Oncology Treatment, [place] 06/25/2018 9:20 AM Provider Alicja Rivas PA-C Department Neurology [facility] Patient should also follow up with radiation oncology at [facility] with Dr. 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 , anticoagulated by anticoagulation therapy, Pancytopenia Neutropenic Fever, Hypokalemia, Type 2 diabetes mellitus not on fpc use of insulin Condition: Good Discharge Goals: Improve disease control Activity: Resume your previous activity Lifting: No more than 10 pounds Non-emergency contact: Primary Care Provider and Oncologist Call non-emergency contact if: you have any medication questions Follow-up/Referrals: Bruna White [Primary Care Provider] - Diet: Regular Diet Texture: Dental soft (bite-sized) Addtl Provider Instructions: Patient is discharged to home Prescription of antibiotic augmetin 500 mg TID for 14 days, potassium 10 meq daily for 30 days, odansetron 8 mg every 8 hours as need for nausea have been electronically sent to patient's pharmacy Patient has follow up appointments 05/30/2018 6:15 PM Provider Nato Scott Sp Department Pharmacy, [facility] 06/03/2018 11:00 AM Provider Jason Martin III, MD Department Family Practice [facility] 06/10/2018 8:15 AM Provider Lab [facility] Department Laboratory [facility] 06/10/2018 8:45 AM Provider Pollo Churchill MD Department Hematology/Oncology [facility] 06/10/2018 9:15 AM Provider Chair 6 Hem Onc [facility] Department Hematology/Oncology Treatment, [place] 06/25/2018 9:20 AM Provider Alicja Rivas PA-C Department Neurology [facility] Patient should also follow up with radiation oncology at [facility] with Dr. Moira Cooper and his colleagues Prescriptions: New ondansetron HCl 8 mg Tablet 8 mg PO Q8H PRN (Reason: nausea and vomiting) 10 Days Qty: 30 RF: 0 amoxicillin-pot clavulanate 500-125 mg Tablet 1 tab PO TIDM 14 Days Qty: 42 RF: 0 potassium chloride [Klor-Con M10] 10 mEq Tablet,Er Particles/Crystals 10 meq PO DAILY 30 Days Qty: 30 RF: 0 Continued fenofibrate nanocrystallized [Tricor] 145 mg tablet 145 mg PO QAM RF: 0 sucralfate [Carafate] 100 mg/mL suspension 10 ml PO QID Qty: 420 RF: 1 ondansetron HCl [Zofran] 8 mg Tablet 8 mg PO Q8 PRN (Reason: Nausea) RF: 0 prochlorperazine maleate 10 mg Tablet 10 mg PO Q6 PRN (Reason: Nausea) RF: 0 metformin [Glucophage] 1,000 mg Tablet 1,000 mg PO BID RF: 0 lisinopril 10 mg tablet 5 mg PO QAM RF: 0 omeprazole 20 mg capsule,delayed release(DR/EC) 20 mg PO DAILY PRN (Reason: Heartburn) RF: 0 promethazine [Phenergan] 25 mg suppository 25 mg DC Q6H PRN (Reason: nausea and vomiting) Qty: 12 RF: 0 Magic Swizzle 10 ml PO UD RF: 0 enoxaparin 100 mg/mL syringe 100 mg subcut Q12 RF: 0 venlafaxine 150 mg Capsule,Extended Release 24hr 1.5 tabs PO DAILY RF: 0 cyanocobalamin (vitamin B-12) 5,000 mcg Tablet, Sublingual 5,000 mcg SUBLINGUAL DAILY RF: 0 Stand-Alone Forms: [facility] Discharge Orders: Discharge Order (Routine); Ordered 05/29/18 Ordered By: Prudencio Holden Admission Data Admit Date/Time: 05/22/18 14:16 Attending Provider: Prudencio Holden Admit Provider: Prudencio Holden Primary Care Provider: Bruna White. Other Providers: Prudencio Holden ; William Cooper ; Saleem Holliday ; Hugo Alvarado Service: Telemetry
[2018-05-30] MEDS ORDERED: POTASSIUM CHLORIDE 10 MEQ TABCR PO SCH (09:00)
== END 2018-05-29 16:26 | disposition home or self-care (01) ==
LOC: ED 10:06 → 2W 14:16 → SUATTDRO 14:16 → 2W 15:10